=== PATIENT | female | born 1960 | race Caucasian/White ===

== ENCOUNTER 2016-10-29 10:35 | Emergency (ER) | payer OTHER ==
[~2016-10-29] VITALS: Ht 160 cm; Wt 62.1 kg
[~2016-10-29 10:35] MED LIST: ASCO250T4 PO; ATV5 PO; BUPR150T7 PO; CALC500C70 PO; CITA40TA4 PO; DIAZ2TAB PO; DOCU-94 PO; HYDR-3763 PO; HYDR25TA4 PO; LEVO50TA PO; LSNP/30 PO; MULTTAB58 PO; OMEP20TA PO; ONDA4TAB46 PO; PRM625 PO; PROM1SUP19 PR; RXC5 PO; SENN-61 PO; SNT/10 PO; SUCR1TAB29 PO; SUMA100T16 PO; TIZA4CAP PO
[2016-10-29 10:41] VITALS: TEMP 36.7; Ht 160 cm; Wt 62.1 kg
[2016-10-29 11:09] LABS: BASO % 0.3 %; BASO ABS # 0.02 K/uL (0-0.2); COMPLETE YES; EOS % 1.3 %; HEMATOCRIT 37.7 % (37-47); IG% 0.1 %; LYMPH % 33.2 %; LYMPH ABS # 2.29 K/uL (1.2-3.4); MEAN CELL VOLUME 92.4 fL (80-100); MEAN CORPUSCULAR HEMOGLOBIN 29.9 pg (25-34); MEAN CORPUSCULAR HGB CONC 32.4 g/dl (32-36); MEAN PLATELET VOLUME 9.2 fL (7.4-10.4); MONO % 5.8 %; NEUT % 59.3 %; PLATELET COUNT 354 K/uL (130-400); RED BLOOD COUNT 4.08 M/uL (4.2-5.4); WHITE BLOOD COUNT 6.89 K/uL (4.8-10.8)
[2016-10-29] MEDS ORDERED: METOCLOPRAMIDE HCL INJ 5 MG/ML 2 ML VIAL IV STA (11:10)
[2016-10-29] MEDS ORDERED: SODIUM CHLORIDE 0.9% 1000ML 1,000 ML IV STA (11:10)
[2016-10-29] MEDS ORDERED: HYDROmorphone INJ 1 MG/ML SYR IV STA ×3 (11:10→14:31)
--- NOTE | 2016-10-29 11:25 | EMERGENCY ROOM VISIT NOTE ---
History Report prepared by Salvatore: Meg Welch Under the Supervision of: Dr. Ulices Palomino M.D. First contact with patient: 10:44 Chief Complaint: ABDOMINAL PAIN Stated Complaint: NAUSEA Nursing Triage Summary: Patient presents with 2 day history of nausea/vomiting and abdominal pain. History of SBO. Was evaluated at [facility] on Wednesday with negative findigns. Went to GI doc this AM and sent to ED for evaluation. Patient denies any constipation, reports diarrhea this AM. History of Present Illness The patient is a 56 year old female who presents to the Emergency Room with complaints of persistent nausea and vomiting that began two days ago. She currently rates her discomfort as a 9/10 in severity. The patient notes that she has a history of small bowel obstructions and was evaluated at [facility] emergency department on Wednesday. She notes that the CT scan was negative for any findings. 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 She notes abdominal pain and diarrhea as well, but denies any constipation. Source of History: patient Onset: two days ago Position: other (global) Symptom Intensity: 9/10 Quality: other (nausea and vomiting) Timing: other (persistent) Associated Symptoms: + abdominal pain, + nausea, + vomiting Review of Systems See HPI for pertinent positives & negatives. A total of 10 systems reviewed and were otherwise negative. Past Medical & Surgical Medical Problems: (1) Cervical stenosis of spinal canal (2) Cholecystitis Surgical Problems: (1) History of repair of hiatal hernia (2) Status post laparoscopic Krystyna fundoplication Family History No pertinent family history stated. Social History Smoking Status: Never Smoker Alcohol Use: occasionally Drug Use: none Marital Status: Housing Status: lives with family Occupation Status: unemployed Current/Historical Medications Scheduled Ascorbic Acid (Vitamin C), 1 TAB PO QAM Bupropion Hcl (Wellbutrin Sr), 75 MG PO BID Calcium/Vitamin D (Os-Colten 500 Plus D), 1 TAB PO QAM Citalopram (Citalopram Hydrobromide), 1 TAB PO HS Docusate Sodium (Colace), 1 CAP PO BID Estrogens, Conjugated (Premarin), 0.625 MG PO BID Hydrochlorothiazide (Hctz), 1 TAB PO QAM Levothyroxine Sodium (Synthroid), 1 TAB PO QAM Lisinopril (Zestril), 1 TAB PO QAM Multiple Vitamin (Multivitamin), 0.5 TAB PO BID Omeprazole (Omeprazole), 40 MG PO BID Sennosides (Senokot), 8.6 MG PO HS Scheduled PRN Hydrocodon/Acetaminophen 10MG/300MG (Vicodin Hp (10MG/300MG)), 1 TAB PO TID PRN for Pain Lorazepam (Lorazepam), 0.5 MG PO Q8H PRN for anxiety and/or sedation Ondansetron Hcl (Zofran), 4 MG PO Q6 PRN for Nausea Oxycodone HCl (Oxycodone HCl), 5-10 MG PO Q4H PRN for moderate-severe pain Oxycodone/Acetaminophen 5MG/325MG (Percocet 5MG/325MG), 1-2 TAB PO Q4H PRN for Pain Promethazine Hcl (Phenergan Suppository), 25 MG AZ Q6H PRN for Nausea Sumatriptan Succinate (Imitrex), 1 TAB PO UD PRN for Migraine Tizanidine (Zanaflex), 4 MG PO TID PRN for Muscle Spasms Zaleplon (Sonata), 1 CAP PO HS PRN for Sleep Allergies Coded Allergies: Sulfamethoxazole w/Trimethoprim (Verified Allergy, Unknown, LIPS SWELLING , 04/14/16) Methotrexate (Verified Adverse Reaction, Unknown, GI UPSET, 04/14/16) Physical Exam Vital Signs Date Time Temp Pulse Resp B/P Pulse Ox O2 Delivery O2 Flow Rate FiO2 10/29/16 14:08 84 16 132/70 99 10/29/16 12:00 86 16 142/89 99 10/29/16 10:41 36.7 89 20 152/102 98 Room Air Physical Exam GENERAL: Patient is actively dry heaving on exam. HEAD: Normocephalic atraumatic EYES: Ocular movements intact pupils equal and react to light OROPHARYNX mucous membranes are moist no exudates present no erythema or edema present NECK: Supple no nuchal rigidity CHEST: Good equal expansion LUNGS: Clear and equal to auscultation CARDIAC: Normal S1 and S2 ABDOMEN: Soft nontender no guarding BACK: No CVA tenderness EXTREMITIES: No pain upon palpation normal muscle strength in all groups no clubbing cyanosis or edema NEURO: Patient is following commands is answering questions appropriately. Alert and oriented x3 Cranial Nerves 2-12 grossly intact Medical Decision & Procedures ER Provider Diagnostic Interpretation: CT results as stated below per my review and radiologist interpretation: CT SCAN OF THE ABDOMEN AND PELVIS WITH IV CONTRAST CLINICAL HISTORY: Generalized abdominal pain. Nausea. Clinical concern for small bowel obstruction. COMPARISON STUDY: Abdominal CT dated 04/14/2016. TECHNIQUE: Following the IV administration of 93 cc of Optiray 320, CT scan of the abdomen and pelvis is performed from the lung bases to the proximal femora. Images are reviewed in the axial, sagittal, and coronal planes. IV contrast was administered without complication. Automated dose control exposure was utilized. CT DOSE: 265.31 mGy.cm FINDINGS: Lung bases: The heart is normal in size and without pericardial effusion. There is elevation of left hemidiaphragm with mild left basilar atelectasis. No airspace consolidation or pleural effusion is seen. A right breast implant is partially visualized. Liver: The contrast-enhanced liver is normal in size, contour, and attenuation. There is no intrahepatic biliary ductal dilatation. The hepatic veins and portal veins are patent. Gallbladder: Unremarkable. Spleen: Normal in size and attenuation. Pancreas: Atrophic and grossly unremarkable. Adrenal glands: Unremarkable. Kidneys: The contrast enhanced kidneys demonstrate mild cortical atrophy and are without hydronephrosis. The kidneys enhance symmetrically. Abdominal vasculature: The abdominal aorta is normal in course and caliber. Bowel: Postoperative change is seen at the gastroesophageal junction comment the configuration of the junction suggests previous fundoplication. The stomach and duodenum otherwise normal in configuration. There is ill-defined mucosal thickening involving the distal stomach, best seen on axial image #95. This appears circumferential. There is no perigastric inflammatory change. There is no bowel obstruction. The appendix is well-visualized and normal. Peritoneum: There is no intraperitoneal free air or abdominal ascites. Lymphadenopathy: A prominent upper abdominal lymph node adjacent to the duodenum on image #138 measures 1.1 x 1.6 cm. Pelvic viscera: The bladder is normal as visualized. The uterus is surgically absent. No adnexal lesion is seen. Numerous phleboliths are identified in the pelvis the Skeletal structures: The skeletal structures are osteopenic. There is moderate lumbosacral spondylosis and scoliosis. No lytic or blastic lesions are seen. Hemangiomas are suspected at multiple lumbar levels and the sacrum. IMPRESSION: 1. There are no acute infectious or inflammatory findings in the abdomen or pelvis. 2. There is no small bowel obstruction identified as clinically queried. 3. The appearance of the stomach suggests previous fundoplication. Correlation with the surgical history will be required. 4. Ill-defined gastric wall thickening is suggested in the mid to distal stomach. This appears circumferential and is of indeterminant significance. This could attention represent gastritis or less likely a gastric mass lesion. GI follow-up is recommended, with consideration of endoscopy to exclude underlying mass lesion. 5. A prominent upper abdominal lymph node adjacent to the duodenum is of indeterminant etiology and significance. 6. Additional findings as above. Electronically signed by: Sundeep Blackwood M.D. 10/29/2016 2:19 PM Dictated Date/Time: 10/29/2016 2:08 PM Laboratory Results 10/29/16 10:50 Red Blood Count 4.08, Mean Corpuscular Volume 92.4, Mean Corpuscular Hemoglobin 29.9, Mean Corpuscular Hemoglobin Concent 32.4, Mean Platelet Volume 9.2, Neutrophils (%) (Auto) 59.3, Lymphocytes (%) (Auto) 33.2, Monocytes (%) (Auto) 5.8, Eosinophils (%) (Auto) 1.3, Basophils (%) (Auto) 0.3, Neutrophils # (Auto) 4.08, Lymphocytes # (Auto) 2.29, Monocytes # (Auto) 0.40, Eosinophils # (Auto) 0.09, Basophils # (Auto) 0.02 10/29/16 10:50 Test 10/29/16 00:00 10/29/16 10:50 Urine Color YELLOW Urine Appearance CLEAR (CLEAR) Urine pH 7.0 (4.5-7.5) Urine Specific [place] 1.010 (1.000-1.030) Urine Protein NEG (NEG) Urine Glucose (UA) NEG (NEG) Urine Ketones TRACE (NEG) Urine Occult Blood NEG (NEG) Urine Nitrite NEG (NEG) Urine Bilirubin NEG (NEG) Urine Urobilinogen NEG (NEG) Urine Leukocyte Esterase NEG (NEG) Urine Opiates Screen POS (NEG) Urine Methadone, Qualitative NEG (NEG) Urine Barbiturates NEG (NEG) Urine Phencyclidine (PCP) Level NEG (NEG) Ur Amphetamine/Methamphetamine NEG (NEG) MDMA (Ecstasy) Screen POS (NEG) Urine Benzodiazepines Screen NEG (NEG) Urine Cocaine Metabolite NEG (NEG) Urine Marijuana (THC) NEG (NEG) White Blood Count 6.89 K/uL (4.8-10.8) Red Blood Count 4.08 M/uL (4.2-5.4) Hemoglobin 12.2 g/dL (12.0-16.0) Hematocrit 37.7 % (37-47) Mean Corpuscular Volume 92.4 fL (80-100) Mean Corpuscular Hemoglobin 29.9 pg (25-34) Mean Corpuscular Hemoglobin Concent 32.4 g/dl (32-36) Platelet Count 354 K/uL (130-400) Mean Platelet Volume 9.2 fL (7.4-10.4) Neutrophils (%) (Auto) 59.3 % Lymphocytes (%) (Auto) 33.2 % Monocytes (%) (Auto) 5.8 % Eosinophils (%) (Auto) 1.3 % Basophils (%) (Auto) 0.3 % Neutrophils # (Auto) 4.08 K/uL (1.4-6.5) Lymphocytes # (Auto) 2.29 K/uL (1.2-3.4) Monocytes # (Auto) 0.40 K/uL (0.11-0.59) Eosinophils # (Auto) 0.09 K/uL (0-0.5) Basophils # (Auto) 0.02 K/uL (0-0.2) RDW Standard Deviation 50.4 fL (36.4-46.3) RDW Coefficient of Variation 15.0 % (11.5-14.5) Immature Granulocyte % (Auto) 0.1 % Immature Granulocyte # (Auto) 0.01 K/uL (0.00-0.02) Anion Gap 9.0 mmol/L (3-11) Est Creatinine Clear Calc Drug Dose 57.7 ml/min Estimated GFR () 83.4 Estimated GFR (Non- 71.9 BUN/Creatinine Ratio 13.4 (10-20) Calcium Level 9.4 mg/dl (8.5-10.1) Total Bilirubin 0.2 mg/dl (0.2-1) Direct Bilirubin < 0.1 mg/dl (0-0.2) Aspartate Amino Transf (AST/SGOT) 16 U/L (15-37) Alanine Aminotransferase (ALT/SGPT) 19 U/L (12-78) Alkaline Phosphatase 58 U/L (45-117) Total Protein 6.9 gm/dl (6.4-8.2) Albumin 3.6 gm/dl (3.4-5.0) Lipase 97 U/L (73-393) Labs reviewed by ED physician. Medications Administered Medications (Trade) Dose Ordered Sig/Toma Route Start Time Stop Time Status Last Admin Dose Admin Sodium Chloride (Nss 1000ml) 1,000 ml @ 999 mls/hr Q1H1M STAT IV 10/29/16 11:10 10/29/16 12:10 DC 10/29/16 11:21 999 MLS/HR Metoclopramide HCl (Reglan Inj) 10 mg NOW STAT IV 10/29/16 11:10 10/29/16 11:13 DC 10/29/16 11:21 10 MG Hydromorphone HCl (Dilaudid Inj) 1 mg NOW STAT IV 10/29/16 11:10 10/29/16 11:13 DC 10/29/16 11:21 1 MG Ondansetron HCl (Zofran Inj) 4 mg NOW STAT IV 10/29/16 11:51 10/29/16 11:52 DC 10/29/16 11:57 4 MG Hydromorphone HCl (Dilaudid Inj) 1 mg NOW STAT IV 10/29/16 11:51 10/29/16 11:52 DC 10/29/16 11:57 1 MG Miscellaneous Medication (Gi Cocktail) 24 ml NOW STAT PO 10/29/16 14:30 10/29/16 14:32 DC 10/29/16 15:05 24 ML Famotidine (Pepcid Tab) 20 mg NOW STAT PO 10/29/16 14:30 10/29/16 14:32 DC 10/29/16 15:03 20 MG Sucralfate (Carafate Tab) 1 gm NOW STAT PO 10/29/16 14:30 10/29/16 14:32 DC 10/29/16 15:03 1 GM Hydromorphone HCl (Dilaudid Inj) 1 mg NOW STAT IV 10/29/16 14:31 10/29/16 14:32 DC 10/29/16 15:02 1 MG Ondansetron HCl (Zofran Inj) 4 mg NOW STAT IV 10/29/16 14:39 10/29/16 14:40 DC 10/29/16 15:03 4 MG ED Course 1107: Past medical records reviewed. The patient was evaluated in room C4. A complete history and physical examination was performed. 1110: Ordered Dilaudid Inj 1 mg IV, Reglan Inj 10 mg IV, Sodium Chloride 1000 ml @ 999 mls/hr IV. 1115: Past medical records reviewed. The patient was evaluated in room C4. A complete history and physical examination was performed. 1150: I reevaluated the patient and she is feeling a little bit better. 1151: Ordered Dilaudid Inj 1 mg IV, Zofran Inj 4 mg IV. 1427: I reevaluated the patient and she informed me that she had an appointment with gastroenterology today. 1430: Ordered Sucralfate 1 gm PO, Pepcid Tab 20 mg PO, GI Cocktail 24 ml PO. 1431: Ordered Dilaudid Inj 1 mg IV. 1434: I discussed the patient's case with Dr. Art, Gastroenterology. He states that the patient should follow up with their office. 1439: Ordered Zofran Inj 4 mg IV. 1445: I reevaluated the patient and she is resting. I discussed all the exam findings with her and I discussed the treatment plan. She verbalized complete understanding and agreement. She is ready to go home. Medical Decision Differential diagnosis: Etiologies such as appendicitis, diverticulitis, PUD, biliary pathology, UTI, pancreatitis, obstruction, mesenteric ischemia, aortic pathology, infections, inflammatory bowel disease, renal colic, as well as others were entertained. This is a 56-year-old female who presents emergency department complaining of epigastric pain. The patient was supposed to see gastroenterology today but came to the emergency department instead. She is accomplishment medical history in regards to her stomach. She had a Krystyna fundoplication performed in [place]. She was admitted here for similar symptoms back in last April. At that point the patient had been placed on Pepcid twice a day and was taking Carafate. CT the abdomen pelvis is concerning for a large amount of gastritis and abnormal stomach wall. For this reason I did discuss the case with Dr. art who asked that the patient be started on a clear liquid diet along with Carafate and Pepcid. The patient will have close follow-up with gastroenterology. An IV was established, patient given normal saline bolus, 1 mg of Dilaudid 3, Reglan, Zofran. Repeat examination revealed improvement patient's symptoms. The patient was able to tolerate the by mouth contrast and I feel is able to be discharged home for close follow-up with gastroenterology. Patient was in agreement with the treatment plan. Consults Time Called: 1430 Consulting Physician: Dr. Art, Gastrotenterology Returned Call: 1434 I discussed the patient's case with Dr. Art, Gastroenterology. He states that the patient should follow up with their office. Impression Primary Impression: Gastritis Scribe Attestation The scribe's documentation has been prepared under my direction and personally reviewed by me in its entirety. I confirm that the note above accurately reflects all work, treatment, procedures, and medical decision making performed by me. Departure Information Dispostion Home / Self-Care Prescriptions Docusate Sodium (COLACE) 100 Mg Cap 1 CAP PO BID for 10 Days, #20 CAP Prov: Ulices Palomino MD 10/29/16 Sennosides (SENOKOT) 8.6 Mg Tab 8.6 MG PO HS, #10 TAB Prov: Ulices Palomino MD 10/29/16 Oxycodone/Acetaminophen 5MG/325MG (PERCOCET 5MG/325MG) Tab 1-2 TAB PO Q4H Y for Pain, #14 TAB Prov: Ulices Palomino MD 10/29/16 Promethazine Hcl (PHENERGAN SUPPOSITORY) 25 Mg Supp 25 MG AZ Q6H Y for Nausea, #10 SUPP Prov: Ulices Palomino MD 10/29/16 Referrals Meagan Casillas MD (PCP) Forms Call Back Authorization, HOME CARE DOCUMENTATION FORM, IMPORTANT VISIT INFORMATION, School Instructions, Work Instructions Patient Instructions ED Diet Clear Liquid, ED Gastritis, Gastritis Tx, My [facility] Additional Instructions Clear liquid diet next 48 hours Take 5 ml Maalox before every meal and at betime Need follow up with Dr Art's office You received narcotic or benzodiazepene medication while in the emergency room today. Do not drive, operate heavy machinery, or drink alcohol under the influence of this medication. Take Percocet for breakthrough pain You have been examined and treated today on an emergency basis only. This is not a substitute for, or an effort to provide, complete comprehensive medical care. It is impossible to recognize and treat all injuries or illnesses in a single emergency department visit. It is therefore important that you follow up closely with Dr Casillas. Call as soon as possible for an appointment. Thank you for your time and consideration. I look forward to speaking with you again soon. Please don't hesitate to call us if you have any questions. Problem Qualifiers Primary Impression: Gastritis Gastritis type: other gastritis Chronicity: acute Gastritis bleeding: without bleeding Qualified Codes: K29.00 - Acute gastritis without bleeding
[2016-10-29 11:29] LABS: ALT/SGPT 19 U/L (12-78); AST/SGOT 16 U/L (15-37); BLOOD UREA NITROGEN 12 mg/dl (7-18); BUN/CREATININE RATIO 13.4 (10-20); CALCIUM 9.4 mg/dl (8.5-10.1); CARBON DIOXIDE 27 mmol/L (21-32); CHLORIDE 105 mmol/L (98-107); CREATININE 0.89 mg/dl (0.60-1.20); GLUCOSE 101 mg/dl (70-99); POTASSIUM 3.8 mmol/L (3.5-5.1); SODIUM 141 mmol/L (136-145)
[2016-10-29 11:31] LABS: ALKALINE PHOSPHATASE 58 U/L (45-117)
[2016-10-29] MEDS ORDERED: ONDANSETRON INJ 2 MG/ML 2 ML VIAL IV STA ×2 (11:51→14:39)
[2016-10-29 12:07] LABS: URINE APPEARANCE CLEAR (CLEAR); URINE BILIRUBIN NEG (NEG); URINE COLOR YELLOW; URINE NITRITE NEG (NEG); UROBILINOGEN NEG (NEG)
[2016-10-29 12:11] LABS: MANUAL MICROSCOPIC REQUIRED? NO; REVIEW REQ? NO
[2016-10-29] MEDS ORDERED: OPTIRAY 320 IV PRN (12:30)
[2016-10-29 12:38] LABS: BENZODIAZEPINE, URINE NEG (NEG); COCAINE,URINE NEG (NEG); PHENCYCLIDINE, URINE NEG (NEG)
[2016-10-29 14:08] VITALS: BP 132/70; PULSE 84; O2SAT 99
--- NOTE | 2016-10-29 14:21 | DIAGNOSTIC IMAGING REPORT ---
CT SCAN OF THE ABDOMEN AND PELVIS WITH IV CONTRAST CLINICAL HISTORY: Generalized abdominal pain. Nausea. Clinical concern for small bowel obstruction. COMPARISON STUDY: Abdominal CT dated 04/14/2016. TECHNIQUE: Following the IV administration of 93 cc of Optiray 320, CT scan of the abdomen and pelvis is performed from the lung bases to the proximal femora. Images are reviewed in the axial, sagittal, and coronal planes. IV contrast was administered without complication. Automated dose control exposure was utilized. CT DOSE: 265.31 mGy.cm FINDINGS: Lung bases: The heart is normal in size and without pericardial effusion. There is elevation of left hemidiaphragm with mild left basilar atelectasis. No airspace consolidation or pleural effusion is seen. A right breast implant is partially visualized. Liver: The contrast-enhanced liver is normal in size, contour, and attenuation. There is no intrahepatic biliary ductal dilatation. The hepatic veins and portal veins are patent. Gallbladder: Unremarkable. Spleen: Normal in size and attenuation. Pancreas: Atrophic and grossly unremarkable. Adrenal glands: Unremarkable. Kidneys: The contrast enhanced kidneys demonstrate mild cortical atrophy and are without hydronephrosis. The kidneys enhance symmetrically. Abdominal vasculature: The abdominal aorta is normal in course and caliber. Bowel: Postoperative change is seen at the gastroesophageal junction comment the configuration of the junction suggests previous fundoplication. The stomach and duodenum otherwise normal in configuration. There is ill-defined mucosal thickening involving the distal stomach, best seen on axial image #95. This appears circumferential. There is no perigastric inflammatory change. There is no bowel obstruction. The appendix is well-visualized and normal. Peritoneum: There is no intraperitoneal free air or abdominal ascites. Lymphadenopathy: A prominent upper abdominal lymph node adjacent to the duodenum on image #138 measures 1.1 x 1.6 cm. Pelvic viscera: The bladder is normal as visualized. The uterus is surgically absent. No adnexal lesion is seen. Numerous phleboliths are identified in the pelvis the Skeletal structures: The skeletal structures are osteopenic. There is moderate lumbosacral spondylosis and scoliosis. No lytic or blastic lesions are seen. Hemangiomas are suspected at multiple lumbar levels and the sacrum. IMPRESSION: 1. There are no acute infectious or inflammatory findings in the abdomen or pelvis. 2. There is no small bowel obstruction identified as clinically queried. 3. The appearance of the stomach suggests previous fundoplication. Correlation with the surgical history will be required. 4. Ill-defined gastric wall thickening is suggested in the mid to distal stomach. This appears circumferential and is of indeterminant significance. This could attention represent gastritis or less likely a gastric mass lesion. GI follow-up is recommended, with consideration of endoscopy to exclude underlying mass lesion. 5. A prominent upper abdominal lymph node adjacent to the duodenum is of indeterminant etiology and significance. 6. Additional findings as above. Electronically signed by: Sundeep Blackwood M.D. 10/29/2016 2:19 PM Dictated Date/Time: 10/29/2016 2:08 PM
[2016-10-29] MEDS ORDERED: GI COCKTAIL PO STA (14:30)
[2016-10-29] MEDS ORDERED: FAMOTIDINE 20 MG TAB PO STA (14:30)
[2016-10-29] MEDS ORDERED: SUCRALFATE 1 GM TAB PO STA (14:30)
[2016-10-29] MEDS ORDERED: PROM25SU28 PR (14:46)
[2016-10-29] MEDS ORDERED: DOCU-94 PO (14:46)
[2016-10-29] MEDS ORDERED: SENN1TAB77 PO (14:46)
[2016-10-29] MEDS ORDERED: OXYC-57 PO (14:46)
[2016-10-29] MEDS ORDERED: ALUMINUM/MAGNESIUM SUSP 30 ML UDC ONE (14:58)
[2016-10-29] MEDS ORDERED: LIDOCAINE HCL 2% VISC SOLN 20 ML UDC ONE (14:58)
[2016-11-02 18:38] LABS: COD UR NEGATIVE NG/ML (CUTOFF=50); HYDROCOD UR 85 NG/ML (CUTOFF=50); HYDROMOR UR 253 NG/ML (CUTOFF=50); MORPHINE UR NEGATIVE NG/ML (CUTOFF=50); NORHYDROCODONE CONF UR 281 NG/ML (CUTOFF=50); OXYMORPH UR NEGATIVE NG/ML (CUTOFF=50)
[2017-01-20] MEDS ORDERED: CLB/200 PO (09:51)
[2017-01-20] MEDS ORDERED: SERT50TA PO (09:51)
[2017-01-20] MEDS ORDERED: PRLSR20 PO (09:51)
== END 2016-10-29 15:53 | disposition home or self-care (01) ==
LOC: EDBD 10:35 → C.ED 10:36 → C.EDC 15:53
DX: K29.00 Acute gastritis without bleeding (principal); Z98.890 Other specified postprocedural states; Z88.2 Allergy status to sulfonamides

== ENCOUNTER → 2016-11-04 | Day surgery (SDC) | payer OTHER ==
[~2016-11-04] VITALS: Ht 160 cm; Wt 59.0 kg
[~2016-11-04] MED LIST changes: +CLB/200 PO; -DIAZ2TAB PO; +LIDOCAINE HCL 2% 2 ML VIAL (20MG/ML) ONE; +ONDANSETRON INJ 2 MG/ML 2 ML VIAL ONE; +OXYC-57 PO; +PRLSR20 PO; -PROM1SUP19 PR; +PROM25SU28 PR; +PROPOFOL IV EMULSION 10 MG/ML 20 ML VIAL IV ONE; -SENN-61 PO; +SENN1TAB77 PO; +SERT50TA PO; +SODIUM CHLORIDE 0.9% 500ML 500 ML IV ONE; -SUCR1TAB29 PO
[2016-11-04 08:10] VITALS: Ht 160 cm; Wt 59.0 kg
--- NOTE | 2016-11-04 08:46 | Endo History and Physical ---
History & Physical Date of Service: Nov 04, 2016. Chief Complaint: abd pain Referring Physician: Dr. Meagan Casillas History of Present Illness 56 yo CF who presents for EGD secondary to abdominal pain. Past Medical History Osteoporosis, Arthritis, Anxiety, Reflux, Blood Dyscrasias, Hypertension, Thyroid Disease, Other, Depression Past Surgical History Hx Cardiac Surgery: No Hx Internal Defibrillator: No Hx Pacemaker: No Hx Abdominal Surgery: Yes (see above) Hx of Implantable Prosthesis: No Hx Post-Op Nausea and Vomiting: Yes Hx Cancer Surgery: No Hx Thoracic Surgery: No Hx Orthopedic: Yes (right ankle, spine/neck sx) Hx Urinary Tract Surgery: No Social History Smoking Status: Never Smoker Hx Substance Use: Yes Hx Alcohol Use: Yes (social) Allergies Coded Allergies: Sulfamethoxazole w/Trimethoprim (Verified Allergy, Unknown, LIPS SWELLING , 04/14/16) Methotrexate (Verified Adverse Reaction, Unknown, GI UPSET, 04/14/16) Current Medications Reported Home Medications Medications Dose Route/Sig Max Daily Dose Days Date Category Colace (Docusate Sodium) 100 Mg Cap 1 Cap PO BID 10 10/29/16 Rx Percocet 5MG/325MG (Oxycodone/Acetaminophen) Tab 1-2 Tab PO Q4H PRN 10/29/16 Rx Phenergan Suppository (Promethazine HCl) 25 Mg Supp 25 Mg OR Q6H PRN 10/29/16 Rx Omeprazole 20 Mg Tab 40 Mg PO BID 04/16/16 Rx Lorazepam 0.5 Mg Tab 0.5 Mg PO Q8H PRN 15 02/20/16 Rx Oxycodone HCl 5 Mg Tab 5-10 Mg PO Q4H PRN 30 02/20/16 Rx Zofran (Ondansetron HCl) 4 Mg Tab 4 Mg PO Q6 PRN 02/03/16 Reported Vitamin C (Ascorbic Acid) 250 Mg Tab 1 Tab PO QAM 05/14/15 Reported Multivitamin (Multiple Vitamin) 1 Tab Tab 0.5 Tab PO BID 05/14/15 Reported Os-Colten 500 Plus D (Calcium/Vitamin D) Tab 1 Tab PO QAM 05/14/15 Reported Zestril (Lisinopril) 30 Mg Tab 1 Tab PO QAM 05/14/15 Reported Premarin (Estrogens Conjugated) 0.625 Mg Tab 0.625 Mg PO BID 05/14/15 Reported Wellbutrin Sr (Bupropion Hcl) 150 Mg Tab 75 Mg PO BID 05/14/15 Reported Citalopram Hydrobromide (Citalopram) 40 Mg Tab 1 Tab PO HS 05/14/15 Reported Synthroid (Levothyroxine Sodium) 50 Mcg Tab 1 Tab PO QAM 05/14/15 Reported Hctz (Hydrochlorothiazide) 25 Mg Tab 1 Tab PO QAM 05/14/15 Reported Vicodin Hp (10MG/300MG) (Hydrocodon/Acetaminophen 10MG/300MG) 1 Tab Tab 1 Tab PO TID PRN 05/14/15 Reported Sonata (Zaleplon) 10 Mg Cap 1 Cap PO HS PRN 05/14/15 Reported Zanaflex (Tizanidine HCl) 4 Mg Cap 4 Mg PO TID PRN 05/14/15 Reported Imitrex (Sumatriptan Succinate) 100 Mg Tab 1 Tab PO UD PRN 30 05/14/15 Reported Vital Signs Weight (Kilograms): 59 Height (Feet): 5 Height (Inches): 3 Date Time Temp Pulse Resp B/P Pulse Ox O2 Delivery O2 Flow Rate FiO2 11/04/16 08:28 36.1 99 18 178/92 97 Room Air Physical Exam General Appearance: WD/WN, no apparent distress Respiratory/Chest: Auscultation: breath sounds normal Cardiovascular: Heart Auscultation: RRR Abdomen: Bowel Sounds: normal Inspection & Palpation: soft, non-distended, no tenderness, guarding & rebound Assessment and Plan Assessment: 56 yo CF who presents for EGD secondary to abdominal pain. Plan: Proceed with EGD.
--- NOTE | 2016-11-04 08:57 | Discharge Instructions ---
Endoscopy Patient Instructions Date / Procedure(s) Performed Nov 04, 2016. EGD Allergy Information Coded Allergies: Sulfamethoxazole w/Trimethoprim (Verified Allergy, Unknown, LIPS SWELLING , 04/14/16) Methotrexate (Verified Adverse Reaction, Unknown, GI UPSET, 04/14/16) Discharge Date / Findings Nov 04, 2016. Gastric ulcer s/p biopsies Medication Instructions OK to resume all medications today as prescribed. Start Carafate 1g by mouth four times daily prior to meals and at bedtime. Reported Home Medications Medications Dose Route/Sig Max Daily Dose Days Date Category Colace (Docusate Sodium) 100 Mg Cap 1 Cap PO BID 10 10/29/16 Rx Percocet 5MG/325MG (Oxycodone/Acetaminophen) Tab 1-2 Tab PO Q4H PRN 10/29/16 Rx Phenergan Suppository (Promethazine HCl) 25 Mg Supp 25 Mg ID Q6H PRN 10/29/16 Rx Omeprazole 20 Mg Tab 40 Mg PO BID 04/16/16 Rx Lorazepam 0.5 Mg Tab 0.5 Mg PO Q8H PRN 15 02/20/16 Rx Oxycodone HCl 5 Mg Tab 5-10 Mg PO Q4H PRN 30 02/20/16 Rx Zofran (Ondansetron HCl) 4 Mg Tab 4 Mg PO Q6 PRN 02/03/16 Reported Vitamin C (Ascorbic Acid) 250 Mg Tab 1 Tab PO QAM 05/14/15 Reported Multivitamin (Multiple Vitamin) 1 Tab Tab 0.5 Tab PO BID 05/14/15 Reported Os-Colten 500 Plus D (Calcium/Vitamin D) Tab 1 Tab PO QAM 05/14/15 Reported Zestril (Lisinopril) 30 Mg Tab 1 Tab PO QAM 05/14/15 Reported Premarin (Estrogens Conjugated) 0.625 Mg Tab 0.625 Mg PO BID 05/14/15 Reported Wellbutrin Sr (Bupropion Hcl) 150 Mg Tab 75 Mg PO BID 05/14/15 Reported Citalopram Hydrobromide (Citalopram) 40 Mg Tab 1 Tab PO HS 05/14/15 Reported Synthroid (Levothyroxine Sodium) 50 Mcg Tab 1 Tab PO QAM 05/14/15 Reported Hctz (Hydrochlorothiazide) 25 Mg Tab 1 Tab PO QAM 8/11/15 Reported Vicodin Hp (10MG/300MG) (Hydrocodon/Acetaminophen 10MG/300MG) 1 Tab Tab 1 Tab PO TID PRN 05/14/15 Reported Sonata (Zaleplon) 10 Mg Cap 1 Cap PO HS PRN 05/14/15 Reported Zanaflex (Tizanidine HCl) 4 Mg Cap 4 Mg PO TID PRN 05/14/15 Reported Imitrex (Sumatriptan Succinate) 100 Mg Tab 1 Tab PO UD PRN 30 05/14/15 Reported Provider Instructions Activity Restrictions - No exercising or heavy lifting for 24 hours. - Do not drink alcohol the day of the procedure. - Do not drive a car or operate machinery until the day after the procedure. - Do not make any important decisions or sign important papers in 24 hours after the procedure. Following Day: - Return to full activity which may include returning to work/school. Diet Start your diet with liquids and light foods (jello, soup, juice, toast). Then eat your usual diet if not nauseated. Treatment For Common After Affects For mild abdominal pain, bloating, or excessive gas: - Rest - Eat lightly - Lie on right side Follow-Up Information Follow-up with Dr. Meagan Casillas as scheduled Anesthesia Information What You Should Know You have had a procedure that required some medicine to reduce anxiety and discomfort. This treatment is called moderate sedation. After receiving the treatment, you may be sleepy, but you will be able to breathe on your own. The effects of the treatment may last for several hours. Follow these instructions along with Activity/Diet recommendations noted above: * Do NOT do anything where dizziness or clumsiness would be dangerous. * Rest quietly at home today, then you can be up and about tomorrow. * Have a responsible person stay with you the rest of today. * You may have had an I.V. today. If so, you may take the dressing off later today. Recommendations Call your doctor if: * Trouble breathing * Continuous vomiting for more than 24 hours * Temperature above 101 degrees * Severe abdominal pain or bloating * Pain not relieved by pain medicine ordered * There is increased drainage or redness from any incision * A large amount of rectal bleeding greater than 2-3 tablespoons. (If you had a polyp/s removed or have hemorrhoids, a small amount of blood - from the rectum is to be expected.) * You have any unanswered questions or concerns. IN THE EVENT OF A SERIOUS EMERGENCY, GO TO THE NEAREST EMERGENCY ROOM Your discharge instructions were prepared by provider Anastacio Edgar. Patient Instructions Signature Page Mary Ann Dawkins Patient (or Guardian) Signature/Date: I have read and understand the instructions given to me by my caregivers. Caregiver/RN/Doctor Signature/Date: The above-named patient and/or guardian has received patient instructions on this date. + Original Patient Signature Page (only) stays with chart. Please make copy for patient.
--- NOTE | 2016-11-04 09:16 | Anesthesiology Progress Note ---
Anesthesia Post Op Note Date & Time Nov 04, 2016 at 09:15 Vital Signs Pain Intensity: 4 Vital Signs Past 12 Hours Date Time Temp Pulse Resp B/P Pulse Ox O2 Delivery O2 Flow Rate FiO2 11/04/16 09:02 95 20 140/84 100 Room Air 11/04/16 08:28 36.1 99 18 178/92 97 Room Air Notes Mental Status: alert / awake / arousable, participated in evaluation Pt Amnestic to Procedure: Yes Nausea / Vomiting: adequately controlled Pain: adequately controlled, see Notes Airway Patency, RR, SpO2: stable & adequate BP & HR: stable & adequate Hydration State: stable & adequate Anesthetic Complications: no major complications apparent The patient did well. She is complaining of abdominal pain that has bothered her for the past week.
[2016-11-04 09:32] VITALS: BP 168/90; PULSE 86; O2SAT 100
--- NOTE | 2016-11-04 10:16 | GI REPORT ---
Procedure Date: 11/04/2016 8:16 AM Procedure: Upper GI endoscopy Indications: Epigastric abdominal pain Medicines: Monitored Anesthesia Care Complications: No immediate complications. Estimated Blood Loss: Estimated blood loss: none. Procedure: Pre-Anesthesia Assessment: - Prior to the procedure, a History and Physical was performed, and patient medications and allergies were reviewed. The patient's tolerance of previous anesthesia was also reviewed. The risks and benefits of the procedure and the sedation options and risks were discussed with the patient. All questions were answered, and informed consent was obtained. Prior Anticoagulants: The patient has taken no previous anticoagulant or antiplatelet agents. ASA Grade Assessment: III - A patient with severe systemic disease. After reviewing the risks and benefits, the patient was deemed in satisfactory condition to undergo the procedure. After obtaining informed consent, the endoscope was passed under direct vision. Throughout the procedure, the patient's blood pressure, pulse, and oxygen saturations were monitored continuously. The scope was introduced through the mouth, and advanced to the second part of duodenum. The upper GI endoscopy was accomplished without difficulty. The patient tolerated the procedure well. Findings: The esophagus was normal. Evidence of a Krystyna fundoplication was found in the cardia. The wrap appeared intact. This was traversed. Two non-bleeding cratered gastric ulcers with no stigmata of bleeding were found in the gastric antrum. The largest lesion was 10 mm in largest dimension. Biopsies were taken with a cold forceps for histology. The examined duodenum was normal. Impression: - Normal esophagus. - A Krystyna fundoplication was found. The wrap appears intact. - Non-bleeding gastric ulcers with no stigmata of bleeding. Biopsied. - Normal examined duodenum. Recommendation: - Resume previous diet. - Continue present medications. - Await pathology results. - Return to GI office. - Use sucralfate tablets 1 gram PO QID for 1 month. Anastacio Edgar DO 11/04/2016 9:02:10 AM This report has been signed electronically. Note Initiated On: 11/04/2016 8:16 AM
== END | disposition home or self-care (01) ==
LOC: C.GI 07:30
PROVIDERS: ATTEND Internal Medicine
DX: K25.9 Gastric ulcer, unspecified as acute or chronic, without hemorrhage or perforation (principal); K21.9 Gastro-esophageal reflux disease without esophagitis; M19.90 Unspecified osteoarthritis, unspecified site; M81.0 Age-related osteoporosis without current pathological fracture; F41.9 Anxiety disorder, unspecified; F32.9 Major depressive disorder, single episode, unspecified; E07.9 Disorder of thyroid, unspecified; Z88.2 Allergy status to sulfonamides; Z88.8 Allergy status to other drugs, medicaments and biological substances; Z98.890 Other specified postprocedural states

== ENCOUNTER → 2017-02-18 | Day surgery (SDC) | payer OTHER ==
[2017-01-20 09:51] VITALS: BMI 23.0
[2017-02-16 10:03] VITALS: Ht 160 cm; Wt 59.1 kg
[~2017-02-18] VITALS: Ht 160 cm; Wt 59.1 kg
[~2017-02-18] MED LIST changes: -CITA40TA4 PO; -DOCU-94 PO; +LABETALOL HCL IV 5 MG/ML 20ML IV ONE; +MIDAZOLAM HCL 1 MG/ML 2ML VIAL ONE; -OMEP20TA PO; -OXYC-57 PO; -RXC5 PO; -SENN1TAB77 PO
[2017-02-18 08:29] VITALS: TEMP 36.7
--- NOTE | 2017-02-18 08:48 | Endo History and Physical ---
History & Physical Date of Service: February 18, 2017. Chief Complaint: Ab pain, Hx gastric ulcer; diarrhea, hx colon obstruction Referring Physician: Meagan Casillas History of Present Illness 56 yo CF who presents for EGD and colonoscopy secondary to history of gastric ulcer, abdominal pain, diarrhea and history of colon obstruction. Past Medical History Osteoporosis, Arthritis, Anxiety, Reflux, Blood Dyscrasias, Hypertension, Thyroid Disease, Other, Depression Past Surgical History Hx Cardiac Surgery: No Hx Internal Defibrillator: No Hx Pacemaker: No Hx Abdominal Surgery: Yes (GAYATRI FUNDOPLICATION, JOVANA BSO, ABDOMINAL ADHESIONS REMOVAL) Hx of Implantable Prosthesis: No Hx Post-Op Nausea and Vomiting: Yes Hx Cancer Surgery: No Hx Thoracic Surgery: No Hx Orthopedic: Yes (ORIF RT ANKLE, CERVICAL FUSION) Hx Urinary Tract Surgery: No Family History IBD Social History Smoking Status: Never Smoker Hx Substance Use: Yes (SEE MED REC) Hx Alcohol Use: No Allergies Coded Allergies: Sulfamethoxazole w/Trimethoprim (Verified Allergy, Unknown, LIPS SWELLING , 02/16/17) Methotrexate (Verified Adverse Reaction, Unknown, GI UPSET, 02/16/17) Current Medications Reported Home Medications Medications Dose Route/Sig Max Daily Dose Days Date Category CeleBREX (Celecoxib) 200 Mg Cap 200 Mg PO BID PRN 01/20/17 Reported Prilosec (Omeprazole) 20 Mg Capcr 20 Mg PO BID 01/20/17 Reported Zoloft (Sertraline HCl) 50 Mg Tab 50 Mg PO HS 01/20/17 Reported Phenergan Suppository (Promethazine HCl) 25 Mg Supp 25 Mg IN Q6H PRN 10/29/16 Rx Lorazepam 0.5 Mg Tab 0.5 Mg PO Q8H PRN 15 02/20/16 Rx Zofran (Ondansetron HCl) 4 Mg Tab 4 Mg PO Q6 PRN 02/03/16 Reported Vitamin C (Ascorbic Acid) 250 Mg Tab 1 Tab PO QAM 05/14/15 Reported Multivitamin (Multiple Vitamin) 1 Tab Tab 0.5 Tab PO BID 05/14/15 Reported Os-Colten 500 Plus D (Calcium/Vitamin D) Tab 1 Tab PO QAM 05/14/15 Reported Zestril (Lisinopril) 30 Mg Tab 1 Tab PO QAM 05/14/15 Reported Premarin (Estrogens Conjugated) 0.625 Mg Tab 0.625 Mg PO BID 05/14/15 Reported Wellbutrin Sr (Bupropion Hcl) 150 Mg Tab 75 Mg PO BID 05/14/15 Reported Synthroid (Levothyroxine Sodium) 50 Mcg Tab 1 Tab PO QAM 05/14/15 Reported Hctz (Hydrochlorothiazide) 25 Mg Tab 1 Tab PO QAM 05/14/15 Reported Vicodin Hp (10MG/300MG) (Hydrocodon/Acetaminophen 10MG/300MG) 1 Tab Tab 1 Tab PO TID PRN 05/14/15 Reported Sonata (Zaleplon) 10 Mg Cap 1 Cap PO HS PRN 05/14/15 Reported Zanaflex (Tizanidine HCl) 4 Mg Cap 4 Mg PO TID PRN 05/14/15 Reported Imitrex (Sumatriptan Succinate) 100 Mg Tab 1 Tab PO UD PRN 30 05/14/15 Reported Vital Signs Weight (Kilograms): 59.09 Height (Feet): 5 Height (Inches): 3 Date Time Temp Pulse Resp B/P Pulse Ox O2 Delivery O2 Flow Rate FiO2 02/18/17 08:29 36.7 89 20 136/103 99 Room Air Physical Exam General Appearance: WD/WN, no apparent distress Respiratory/Chest: Auscultation: breath sounds normal Cardiovascular: Heart Auscultation: RRR Abdomen: Bowel Sounds: normal Inspection & Palpation: soft, non-distended, no tenderness, guarding & rebound Assessment and Plan Assessment: 56 yo CF who presents for EGD and colonoscopy secondary to history of gastric ulcer, abdominal pain, diarrhea and history of colon obstruction. Plan: Proceed with EGD and colonoscopy.
--- NOTE | 2017-02-18 09:26 | GI REPORT ---
Procedure Date: 02/18/2017 8:54 AM Procedure: Upper GI endoscopy Indications: Follow-up of acute gastric ulcer Medicines: Monitored Anesthesia Care Complications: No immediate complications. Estimated Blood Loss: Estimated blood loss: none. Procedure: Pre-Anesthesia Assessment: - Prior to the procedure, a History and Physical was performed, and patient medications and allergies were reviewed. The patient's tolerance of previous anesthesia was also reviewed. The risks and benefits of the procedure and the sedation options and risks were discussed with the patient. All questions were answered, and informed consent was obtained. Prior Anticoagulants: The patient has taken no previous anticoagulant or antiplatelet agents. ASA Grade Assessment: III - A patient with severe systemic disease. After reviewing the risks and benefits, the patient was deemed in satisfactory condition to undergo the procedure. After obtaining informed consent, the endoscope was passed under direct vision. Throughout the procedure, the patient's blood pressure, pulse, and oxygen saturations were monitored continuously. The scope was introduced through the mouth, and advanced to the second part of duodenum. The upper GI endoscopy was accomplished without difficulty. The patient tolerated the procedure well. Findings: The esophagus was normal. Evidence of a Krystyna fundoplication was found in the cardia (on retroflexion). The wrap appeared intact. One non-bleeding cratered gastric ulcer with no stigmata of bleeding was found in the gastric antrum. The lesion was 8 mm in largest dimension. Biopsies were taken with a cold forceps for histology. The examined duodenum was normal. Impression: - Normal esophagus. - A Krystyna fundoplication was found. The wrap appears intact. - Non-bleeding gastric ulcer with no stigmata of bleeding. Biopsied. - Normal examined duodenum. Recommendation: - Resume previous diet. - Use Protonix (pantoprazole) 40 mg PO BID. - Use sucralfate suspension 1 gram PO QID for 10 days. - Await pathology results. - Return to primary care physician as previously scheduled. Anastacio Edgar, DO 02/18/2017 9:25:17 AM This report has been signed electronically. Note Initiated On: 02/18/2017 8:54 AM I attest to the content of the Intraoperative Record and orders documented therein, exceptions below
--- NOTE | 2017-02-18 09:27 | GI REPORT ---
Procedure Date: 02/18/2017 8:59 AM Procedure: Colonoscopy Indications: Chronic diarrhea Medicines: Monitored Anesthesia Care Complications: No immediate complications. Estimated Blood Loss: Estimated blood loss: none. Procedure: Pre-Anesthesia Assessment: - Prior to the procedure, a History and Physical was performed, and patient medications and allergies were reviewed. The patient's tolerance of previous anesthesia was also reviewed. The risks and benefits of the procedure and the sedation options and risks were discussed with the patient. All questions were answered, and informed consent was obtained. Prior Anticoagulants: The patient has taken no previous anticoagulant or antiplatelet agents. ASA Grade Assessment: II - A patient with mild systemic disease. After reviewing the risks and benefits, the patient was deemed in satisfactory condition to undergo the procedure. After I obtained informed consent, the scope was passed under direct vision. Throughout the procedure, the patient's blood pressure, pulse, and oxygen saturations were monitored continuously. The Scope was introduced through the anus and advanced to the terminal ileum. The colonoscopy was performed without difficulty. The patient tolerated the procedure well. The quality of the bowel preparation was good. The terminal ileum, ileocecal valve, appendiceal orifice, and rectum were photographed. Findings: Non-bleeding internal hemorrhoids were found during retroflexion. The hemorrhoids were small. The exam was otherwise without abnormality. Impression: - Non-bleeding internal hemorrhoids. - The examination was otherwise normal. - No specimens collected. Recommendation: - Resume previous diet. - Continue present medications. - Repeat colonoscopy in 10 years for surveillance. - Return to primary care physician as previously scheduled. Anastacio Edgar DO 02/18/2017 9:27:13 AM This report has been signed electronically. Note Initiated On: 02/18/2017 8:59 AM I attest to the content of the Intraoperative Record and orders documented therein, exceptions below
--- NOTE | 2017-02-18 09:52 | Discharge Instructions ---
Endoscopy Patient Instructions Date / Procedure(s) Performed February 18, 2017. Colonoscopy, EGD Allergy Information Coded Allergies: Sulfamethoxazole w/Trimethoprim (Verified Allergy, Unknown, LIPS SWELLING , 02/16/17) Methotrexate (Verified Adverse Reaction, Unknown, GI UPSET, 02/16/17) Discharge Date / Findings February 18, 2017. EGD: Gastric ulcer s/p biopsies, History of Krystyna Fundoplication Colonoscopy: Internal hemorrhoids Medication Instructions 1) Stop Omeprazole 2) Start Pantoprazole 40mg by mouth twice daily, 1/2 hour prior to breakfast and dinner. 3) OK to resume all other medications today as prescribed. Reported Home Medications Medications Dose Route/Sig Max Daily Dose Days Date Category CeleBREX (Celecoxib) 200 Mg Cap 200 Mg PO BID PRN 01/20/17 Reported Prilosec (Omeprazole) 20 Mg Capcr 20 Mg PO BID 01/20/17 Reported Zoloft (Sertraline HCl) 50 Mg Tab 50 Mg PO HS 01/20/17 Reported Phenergan Suppository (Promethazine HCl) 25 Mg Supp 25 Mg [place] Q6H PRN 10/29/16 Rx Lorazepam 0.5 Mg Tab 0.5 Mg PO Q8H PRN 15 02/20/16 Rx Zofran (Ondansetron HCl) 4 Mg Tab 4 Mg PO Q6 PRN 02/03/16 Reported Vitamin C (Ascorbic Acid) 250 Mg Tab 1 Tab PO QAM 05/14/15 Reported Multivitamin (Multiple Vitamin) 1 Tab Tab 0.5 Tab PO BID 05/14/15 Reported Os-Colten 500 Plus D (Calcium/Vitamin D) Tab 1 Tab PO QAM 05/14/15 Reported Zestril (Lisinopril) 30 Mg Tab 1 Tab PO QAM 05/14/15 Reported Premarin (Estrogens Conjugated) 0.625 Mg Tab 0.625 Mg PO BID 05/14/15 Reported Wellbutrin Sr (Bupropion Hcl) 150 Mg Tab 75 Mg PO BID 05/14/15 Reported Synthroid (Levothyroxine Sodium) 50 Mcg Tab 1 Tab PO QAM 05/14/15 Reported Hctz (Hydrochlorothiazide) 25 Mg Tab 1 Tab PO QAM 05/14/15 Reported Vicodin Hp (10MG/300MG) (Hydrocodon/Acetaminophen 10MG/300MG) 1 Tab Tab 1 Tab PO TID PRN 05/14/15 Reported Sonata (Zaleplon) 10 Mg Cap 1 Cap PO HS PRN 05/14/15 Reported Zanaflex (Tizanidine HCl) 4 Mg Cap 4 Mg PO TID PRN 05/14/15 Reported Imitrex (Sumatriptan Succinate) 100 Mg Tab 1 Tab PO UD PRN 30 05/14/15 Reported Provider Instructions Activity Restrictions - No exercising or heavy lifting for 24 hours. - Do not drink alcohol the day of the procedure. - Do not drive a car or operate machinery until the day after the procedure. - Do not make any important decisions or sign important papers in 24 hours after the procedure. Following Day: - Return to full activity which may include returning to work/school. Diet Start your diet with liquids and light foods (jello, soup, juice, toast). Then eat your usual diet if not nauseated. Treatment For Common After Affects For mild abdominal pain, bloating, or excessive gas: - Rest - Eat lightly - Lie on right side Follow-Up Information Follow-up with Meagan Casillas as scheduled Anesthesia Information What You Should Know You have had a procedure that required some medicine to reduce anxiety and discomfort. This treatment is called moderate sedation. After receiving the treatment, you may be sleepy, but you will be able to breathe on your own. The effects of the treatment may last for several hours. Follow these instructions along with Activity/Diet recommendations noted above: * Do NOT do anything where dizziness or clumsiness would be dangerous. * Rest quietly at home today, then you can be up and about tomorrow. * Have a responsible person stay with you the rest of today. * You may have had an I.V. today. If so, you may take the dressing off later today. Recommendations Call your doctor if: * Trouble breathing * Continuous vomiting for more than 24 hours * Temperature above 101 degrees * Severe abdominal pain or bloating * Pain not relieved by pain medicine ordered * There is increased drainage or redness from any incision * A large amount of rectal bleeding greater than 2-3 tablespoons. (If you had a polyp/s removed or have hemorrhoids, a small amount of blood - from the rectum is to be expected.) * You have any unanswered questions or concerns. IN THE EVENT OF A SERIOUS EMERGENCY, GO TO THE NEAREST EMERGENCY ROOM Your discharge instructions were prepared by provider Anastacio Edgar. Patient Instructions Signature Page Mary Ann Dawkins Patient (or Guardian) Signature/Date: I have read and understand the instructions given to me by my caregivers. Caregiver/RN/Doctor Signature/Date: The above-named patient and/or guardian has received patient instructions on this date. + Original Patient Signature Page (only) stays with chart. Please make copy for patient.
[2017-02-18 10:06] VITALS: BP 165/96; PULSE 72; O2SAT 100
--- NOTE | 2017-02-18 10:11 | Anesthesiology Progress Note ---
Anesthesia Post Op Note Date & Time February 18, 2017 at 10:09 Vital Signs Pain Intensity: 0 Vital Signs Past 12 Hours Date Time Temp Pulse Resp B/P Pulse Ox O2 Delivery O2 Flow Rate FiO2 02/18/17 10:06 72 20 165/96 100 Room Air 02/18/17 10:02 77 20 165/114 100 Room Air 02/18/17 09:53 82 20 173/105 98 Room Air 02/18/17 09:52 80 18 173/109 99 Room Air 02/18/17 09:50 88 18 170/107 97 Room Air 02/18/17 09:36 84 16 166/92 97 Room Air 02/18/17 09:21 84 16 114/68 97 Room Air 02/18/17 08:29 36.7 89 20 136/103 99 Room Air Notes Mental Status: alert / awake / arousable, participated in evaluation Pt Amnestic to Procedure: Yes Nausea / Vomiting: adequately controlled Pain: adequately controlled Airway Patency, RR, SpO2: stable & adequate BP & HR: stable & adequate Hydration State: stable & adequate Anesthetic Complications: no major complications apparent The patient has a h/o HTN. She took her BP meds yesterday but not today. She was given labetalol 10mg IV which improved her BP to 165/96 prior to discharge. She was instructed to take her BP meds when she goes home. She understands and agrees.
== END | disposition home or self-care (01) ==
LOC: C.GI 08:03
PROVIDERS: ATTEND Internal Medicine
DX: K52.9 Noninfective gastroenteritis and colitis, unspecified (principal); K64.8 Other hemorrhoids; K25.3 Acute gastric ulcer without hemorrhage or perforation; I10 Essential (primary) hypertension; K21.9 Gastro-esophageal reflux disease without esophagitis; D75.9 Disease of blood and blood-forming organs, unspecified; M81.0 Age-related osteoporosis without current pathological fracture; F32.9 Major depressive disorder, single episode, unspecified; F41.9 Anxiety disorder, unspecified; E07.9 Disorder of thyroid, unspecified; M19.90 Unspecified osteoarthritis, unspecified site; Z83.79 Family history of other diseases of the digestive system; Z79.899 Other long term (current) drug therapy

== ENCOUNTER → 2017-02-24 | Outpatient (CLI) | payer OTHER ==
[~2017-02-24] MED LIST changes: -LABETALOL HCL IV 5 MG/ML 20ML IV ONE; -LIDOCAINE HCL 2% 2 ML VIAL (20MG/ML) ONE; -MIDAZOLAM HCL 1 MG/ML 2ML VIAL ONE; -ONDANSETRON INJ 2 MG/ML 2 ML VIAL ONE; -PROPOFOL IV EMULSION 10 MG/ML 20 ML VIAL IV ONE; -SODIUM CHLORIDE 0.9% 500ML 500 ML IV ONE
== END | disposition home or self-care (01) ==
LOC: C.LABPBG 13:05
PROVIDERS: ATTEND Family Medicine
DX: Z11.59 Encounter for screening for other viral diseases (principal); E03.9 Hypothyroidism, unspecified; D64.9 Anemia, unspecified; I10 Essential (primary) hypertension

== ENCOUNTER → 2017-05-24 | Outpatient (CLI) | payer OTHER ==
[~2017-05-24] MED LIST changes: -PROM25SU28 PR
== END | disposition home or self-care (01) ==
LOC: C.LABPBG 15:35
PROVIDERS: ATTEND Physician Assistant
DX: D64.9 Anemia, unspecified (principal); K21.9 Gastro-esophageal reflux disease without esophagitis

== ENCOUNTER 2017-12-29 13:48 | Emergency (ER) | payer OTHER ==
[~2017-12-29] VITALS: Ht 160 cm; Wt 59.0 kg
[2017-12-29 13:57] VITALS: BP 109/76; PULSE 116; TEMP 36.5; O2SAT 96; Ht 160 cm; Wt 59.0 kg
[2017-12-29] MEDS ORDERED: SUCR1TAB29 PO (14:32)
[2017-12-29] MEDS ORDERED: PRT/20 PO (14:32)
[2017-12-29] MEDS ORDERED: STOMACH MED PO (14:32)
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
[2017-12-29] MEDS ORDERED: ONDANSETRON INJ 2 MG/ML 2 ML VIAL IV STA (14:48)
[2017-12-29] MEDS ORDERED: OPTIRAY 320 IV PRN (15:00)
[2017-12-29 15:01] LABS: BASO % 0.4 %; BASO ABS # 0.03 K/uL (0-0.2); EOS % 6.5 %; EOS ABS # 0.48 K/uL (0-0.5); HEMOGLOBIN 9.4 g/dL (12.0-16.0); IG# 0.04 K/uL (0.00-0.02); MEAN CELL VOLUME 94.2 fL (80-100); MEAN CORPUSCULAR HEMOGLOBIN 30.5 pg (25-34); MEAN CORPUSCULAR HGB CONC 32.4 g/dl (32-36); MEAN PLATELET VOLUME 8.6 fL (7.4-10.4); MONO ABS # 0.44 K/uL (0.11-0.59); NEUT % 56.6 %; NEUT ABS # 4.15 K/uL (1.4-6.5); PLATELET COUNT 395 K/uL (130-400); RED CELL DISTRIBUTION WIDTH CV 15.5 % (11.5-14.5); RED CELL DISTRIBUTION WIDTH SD 52.8 fL (36.4-46.3); WHITE BLOOD COUNT 7.34 K/uL (4.8-10.8)
[2017-12-29 15:26] LABS: ALBUMIN 3.1 gm/dl (3.4-5.0); CALCIUM 8.9 mg/dl (8.5-10.1); CREATININE 0.88 mg/dl (0.60-1.20); POTASSIUM 3.8 mmol/L (3.5-5.1)
[2017-12-29 15:29] LABS: TOTAL PROTEIN 6.7 gm/dl (6.4-8.2)
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
--- NOTE | 2017-12-29 17:22 | DIAGNOSTIC IMAGING REPORT ---
L LOWER EXTREMITY WITH CLINICAL HISTORY: pain swelling LLE knee down ? infection/hematoma/fx TECHNIQUE: Transaxial acquisition with multi axial reformatted images COMPARISON STUDY: None FINDINGS: Moderate generalized soft tissue edema anterior and medial aspect of the left lower leg. This primarily is within the subcutaneous fat. There is a trace amount of fluid surrounding the muscle bundles. There is a small amount of edematous change medial as well as lateral aspect of the left ankle and foot. Mild edematous change of the plantar aspect of the foot is also noted. No acute bony abnormality. There is most consistent with that of a nonspecific cellulitis IMPRESSION: Generalized soft tissue edema/cellulitis of the subcutaneous fat involving the medial and anterior aspect of the lower leg ankle and foot. No evidence for drainable abscess or collection. No acute bony abnormality. The above report was generated using voice recognition software. It may contain grammatical, syntax or spelling errors. Electronically signed by: Nicolas Quezada M.D. 12/29/2017 5:21 PM Dictated Date/Time: 12/29/2017 5:14 PM
[2017-12-29] MEDS ORDERED: HYDROmorphone INJ 1 MG/ML SYR ONE ×2 (18:26→20:30)
[2017-12-29] MEDS ORDERED: ALUMINUM/MAGNESIUM SUSP 30 ML UDC ONE ×2 (18:26→21:00)
[2017-12-29] MEDS ORDERED: LIDOCAINE HCL 2% VISC SOLN 20 ML UDC ONE (18:26)
[2017-12-29] MEDS ORDERED: CEFTRIAXONE SOD INJ 1 GM ADDVIAL ONE (20:29)
[2017-12-29] MEDS ORDERED: OXYCODONE IR HOME PACK PO ONE (21:00)
== END 2017-12-29 21:30 | disposition home or self-care (01) ==
LOC: C.EDB 13:50 → C.EDD 21:30
DX: L03.116 Cellulitis of left lower limb (principal); Z98.890 Other specified postprocedural states

== ENCOUNTER 2022-03-31 13:18 | Inpatient (IN) ==
[~2022-03-31 13:18] MED LIST changes: -ASCO250T4 PO; -ATV5 PO; -BUPR150T7 PO; -CALC500C70 PO; -CLB/200 PO; -HYDR-3763 PO; -HYDR25TA4 PO; -LEVO50TA PO; -LSNP/30 PO; -MULTTAB58 PO; -ONDA4TAB46 PO; +PIPERACILLIN/TAZOBACTAM 4.5 GM/120 ML BAG IV ONE; -PRLSR20 PO; -PRM625 PO; -SERT50TA PO; -SNT/10 PO; -SUMA100T16 PO; -TIZA4CAP PO
--- NOTE | 2022-03-31 13:25 | Emergency Department Note ---
Impression & Plan UGI bleed, Hypomagnesemia, Acute dehydration, Elevated lactic acid level, Symptomatic anemia ED Provider Note NAME: FATEMEH SWAIN AGE: 61 SEX: F : 1960 ARRIVES VIA: Ambulance INFORMANT: Patient, ED PROVIDER(S): Clayton Page MD Chief Complaint: Shortness of breath, weakness HPI: Patient presents due to concern for shortness of breath upper respiratory symptoms and weakness. The patient had presented in the outpatient setting is referred here for further evaluation treatment as the patient reportedly had a low pulse ox in the 70s and 80s. The patient had been placed on a 10 L via oxime mask and the patient was still satting at 83. The patient did have a sat in the high 90s with EMS on 15 L nonrebreather. The patient does complain of some shortness of breath and cough postnasal drip type symptoms and associated weakness. Patient denies any recent travel surgeries or procedures. The pat ient states she is vaccinated for COVID-19 including booster shot. Patient denies any nausea vomiting or chest pain. Patient denies any abdominal pain. ROS: See HPI for pertinent positives and negatives. A total of 10 systems were reviewed and otherwise negative. Past medical history: See below Surgical history: See below Social history: See below Physical Exam: GENERAL: Moderately ill in appearance, tachypneic. Pale in appearance. EYE EXAM: Normal conjunctiva. PERRL, no anisocoria and EOM's grossly intact w/o pain. OROPHARYNX: Dry mucus membranes. Grossly normal dentition. NECK: Supple, no nuchal rigidity, no adenopathy, non-tender. No signs of meningismus. LUNGS: Clear to auscultation. Normal chest wall mechanics. HEART: Tachycardic and regular, no MRG. ABDOMEN: Abdomen soft, non-tender, normo-active bowel sounds, no masses, no rebound or guarding. BACK: No CVA TTP. SKIN: No rashes and no bruising. UPPER EXTREMITIES: Upper extremities are grossly normal. LOWER EXTREMITIES: Grossly normal, no edema. NEURO EXAM: A&O x3, cranial nerves II-XII grossly intact, normal speech, moves all 4 extremities on command w/o issue. Differential diagnoses: Reactive airway disease, pneumonia, pneumothorax, COPD, CHF, infections, cardiac ischemia, pulmonary embolism, musculoskeletal, gastrointestinal, as well as other pathologies. Course: Patient was seen and evaluated the bedside. Full history physical exam was performed. EKG interpreted by me Sinus tachycardia, rate 114, normal intervals, normal axis, no ST changes. Imaging Studies: See Below [Cardiac monitoring: An order was placed for continuous cardiac monitoring. The monitor shows a rate of with rhythm.] MDM: Patient presented due to concern for shortness of breath and hypoxemia. The patient was seen in the large resuscitation room. The patient was placed on BiPAP initially to monitor the patient's work of breathing. The patient did have blood work completed along with blood cultures empiric antibiotics and a CT angiography of the chest in addition to stat chest x-ray. Patient was also ordered IV fluids given the patient's weakness and decreased p.o. intake. Blood work was obtained. The patient is a normal white count. The patient is have a hemoglobin of 8 and most recent from May of last year shows 13. Given this I did perform a rectal exam with a female cub reporter at the bedside nurse Jacquelyn. The patient did have dark stool and was heme positive. After further discussion with the patient the patient did admit to having dark stools last 2 days. Patient denies any alcohol or tobacco use the patient does not use NSAIDs. Patient was ordered blood. The patient was ordered PPI bolus and drip. The patient states that he does have a history of peptic ulcer disease most recently had an EGD completed about a year ago and stated that she did not have any evidence of ulceration at that time. Patient's kidney function is unremarkable. VBG shows normal VBG pH is 7.4. The patient does have a BUN of 40 with elevated BUN to creatinine ratio which may be consistent with dehydration and concomitant upper GI bleeding. Initial lactate of 2.6. The patient was ordered additional IV fluids. The patient was consented for blood and 1 unit was ordered for emergent transfusion uncrossed. Second unit was also ordered. Patient CT angiography of the chest was negative. COVID-negative. Patient does have elevated troponin but believe this may be secondary to demand. EKG with no obvious ischemic changes. Patient does have some hypomagnesemia. I did speak with the on-call hospitalist ISIDRA Bo and the patient was admitted by Dr. Pineda. I also did speak with Dr. Edgar with gastroenterology and he is aware the patient. Critical Care: I have personally spent 77 minutes of critical care time in direct management of this patient. This includes bedside care, interpretation of diagnostic studies, and testing, discussion with consultants, patient, and family members, and other require inpatient management activities. This 77 minutes is in excess of all separately billable procedures. Past Med/Surg History Medical History Cervical stenosis of spinal canal Cholecystitis Vomiting and diarrhea Surgical History S/P JOVANA-BSO (total abdominal hysterectomy and bilateral salpingo-oophorectomy) Status post laparoscopic Krystyna fundoplication Social History Smoking Status: Never smoker Hx Alcohol Use: No Hx Substance Use: No Feels Safe at Home: Yes Allergies Allergies Allergy/AdvReac Type Severity Reaction Status Date / Time Bactrim Allergy Unknown LIPS Verified 12/29/17 14:31 SWELLING sulfamethoxazole [Bactrim] Allergy Unknown LIPS Verified 03/31/22 15:23 SWELLING trimethoprim [Bactrim] Allergy Unknown LIPS Verified 03/31/22 15:23 SWELLING methotrexate AdvReac Unknown GI UPSET Verified 03/31/22 15:23 Home Meds Home Medications Medication Instructions Recorded Confirmed amlodipine 10 mg tablet 10 mg PO DAILY 03/31/22 03/31/22 bupropion HCl 200 mg tablet,12 hr 200 mg PO BID 03/31/22 03/31/22 sustained-release calcium carbonate 600 mg-vitamin 1 tab PO DAILY 03/31/22 03/31/22 D3 10 mcg (400 unit) tablet (Calcium 600 + D(3)) estradiol 1 mg tablet 1 mg PO DAILY 03/31/22 03/31/22 gabapentin 100 mg capsule 100 mg PO TID 03/31/22 03/31/22 hydrochlorothiazide 12.5 mg tablet 12.5 mg PO DAILY 03/31/22 03/31/22 hydrocodone 10 mg-acetaminophen 1 tab PO .Q4-6HR PRN 03/31/22 03/31/22 325 mg tablet hydroxyzine HCl 25 mg tablet 25 mg PO TID PRN 03/31/22 03/31/22 levothyroxine 50 mcg tablet 50 mcg PO DAILY 03/31/22 03/31/22 lisinopril 40 mg tablet 40 mg PO DAILY 03/31/22 03/31/22 methocarbamol 500 mg tablet 500 mg PO Q8 PRN 03/31/22 03/31/22 metoprolol succinate 100 mg 100 mg PO DAILY 03/31/22 03/31/22 tablet,extended release 24 hr mirtazapine 30 mg tablet 30 mg PO HS 03/31/22 03/31/22 multivitamin 1 tab PO DAILY 03/31/22 03/31/22 pantoprazole 40 mg tablet,delayed 40 mg PO BID 03/31/22 03/31/22 release sucralfate 1 gram tablet (Carafate) 1 g PO ACHS 03/31/22 03/31/22 sumatriptan succinate 100 mg tablet 100 mg PO DIRECTED PRN 03/31/22 03/31/22 sumatriptan succinate 4 mg/0.5 mL 4 mg SUBCUT DIRECTED PRN 03/31/22 03/31/22 subcutaneous pen injector zaleplon 10 mg capsule 10 mg PO HS PRN 03/31/22 03/31/22 Results & Data (ED) Vital Signs Vital Signs - 24 hr 03/31/22 13:11 03/31/22 13:25 03/31/22 13:26 Temperature 36.8 C Temperature Source Oral Pulse Rate 114 H 122 H Pulse Rate [Apical] Pulse Rhythm Pulse Rhythm [Apical] Pulse Strength Respiratory Rate 24 28 H Respiratory Effort / Characteristics Short of Breath Spontaneous Respiratory Depth Normal Respiratory Pattern Tachypnea Blood Pressure 99/81 L Blood Pressure [Left Arm] Blood Pressure Mean 87 Blood Pressure Mean [Left Arm] Blood Pressure Position Blood Pressure Position [Left Arm] Pulse Oximetry 100 100 100 Oxygen Delivery Method Non-rebreather BiPAP Oxygen Flow Rate 15 Fraction of Inspired Oxygen 30 Sepsis Recent Fever Within 48 Hours No Sepsis New/Unexplained Change in Mental Status No Sepsis Action Taken by Nursing Physician Notified 03/31/22 13:30 03/31/22 13:40 03/31/22 13:49 Temperature Temperature Source Pulse Rate Pulse Rate [Apical] 110 H 103 H Pulse Rhythm Pulse Rhythm [Apical] Regular Regular Pulse Strength Respiratory Rate 24 20 Respiratory Effort / Characteristics Short of Breath Non-Labored Respiratory Depth Normal Normal Normal Respiratory Pattern Tachypnea Blood Pressure Blood Pressure [Left Arm] 130/86 146/84 H Blood Pressure Mean Blood Pressure Mean [Left Arm] 100 104 Blood Pressure Position Blood Pressure Position [Left Arm] Pulse Oximetry 100 100 Oxygen Delivery Method BiPAP BiPAP Oxygen Flow Rate Fraction of Inspired Oxygen 21 Sepsis Recent Fever Within 48 Hours Sepsis New/Unexplained Change in Mental Status Sepsis Action Taken by Nursing 03/31/22 14:10 03/31/22 14:15 03/31/22 14:30 Temperature 36.5 C Temperature Source Oral Pulse Rate Pulse Rate [Apical] 106 H 109 H 104 H Pulse Rhythm Pulse Rhythm [Apical] Regular Pulse Strength Respiratory Rate 19 22 19 Respiratory Effort / Characteristics Non-Labored Non-Labored Respiratory Depth Normal Respiratory Pattern Blood Pressure Blood Pressure [Left Arm] 125/81 106/75 117/97 Blood Pressure Mean Blood Pressure Mean [Left Arm] 95 85 103 Blood Pressure Position Blood Pressure Position [Left Arm] Pulse Oximetry 100 100 97 Oxygen Delivery Method BiPAP BiPAP BiPAP Oxygen Flow Rate Fraction of Inspired Oxygen Sepsis Recent Fever Within 48 Hours Sepsis New/Unexplained Change in Mental Status Sepsis Action Taken by Nursing 03/31/22 14:43 03/31/22 15:00 03/31/22 15:10 Temperature 36.5 C 36.6 C Temperature Source Oral Oral Pulse Rate 110 H 107 H Pulse Rate [Apical] Pulse Rhythm Regular Pulse Rhythm [Apical] Pulse Strength Normal Respiratory Rate 22 16 Respiratory Effort / Characteristics Respiratory Depth Respiratory Pattern Blood Pressure 117/97 108/84 Blood Pressure [Left Arm] Blood Pressure Mean 103 92 Blood Pressure Mean [Left Arm] Blood Pressure Position Lying Blood Pressure Position [Left Arm] Pulse Oximetry 94 100 97 Oxygen Delivery Method BiPAP Nasal Cannula Oxygen Flow Rate 3 Fraction of Inspired Oxygen Sepsis Recent Fever Within 48 Hours Sepsis New/Unexplained Change in Mental Status Sepsis Action Taken by Nursing 03/31/22 15:15 03/31/22 15:30 03/31/22 15:45 Temperature 36.6 C 37.1 C Temperature Source Oral Oral Pulse Rate 108 H 114 H Pulse Rate [Apical] 116 H Pulse Rhythm Pulse Rhythm [Apical] Pulse Strength Respiratory Rate 20 20 20 Respiratory Effort / Characteristics Non-Labored Respiratory Depth Respiratory Pattern Blood Pressure 132/95 126/68 Blood Pressure [Left Arm] 132/88 Blood Pressure Mean 107 87 Blood Pressure Mean [Left Arm] 102 Blood Pressure Position Blood Pressure Position [Left Arm] Pulse Oximetry 100 97 100 Oxygen Delivery Method Nasal Cannula Oxygen Flow Rate 3 3 3 Fraction of Inspired Oxygen Sepsis Recent Fever Within 48 Hours Sepsis New/Unexplained Change in Mental Status Sepsis Action Taken by Nursing 03/31/22 16:37 03/31/22 16:45 Temperature Temperature Source Pulse Rate 103 H Pulse Rate [Apical] 107 H Pulse Rhythm Pulse Rhythm [Apical] Pulse Strength Respiratory Rate 19 18 Respiratory Effort / Characteristics Non-Labored Respiratory Depth Normal Respiratory Pattern Blood Pressure 141/86 H Blood Pressure [Left Arm] 118/76 Blood Pressure Mean 104 Blood Pressure Mean [Left Arm] 90 Blood Pressure Position Blood Pressure Position [Left Arm] Lying Pulse Oximetry 100 100 Oxygen Delivery Method Nasal Cannula Oxygen Flow Rate 3 3 Fraction of Inspired Oxygen Sepsis Recent Fever Within 48 Hours Sepsis New/Unexplained Change in Mental Status Sepsis Action Taken by Retirement Medications Current Medication List: was personally reviewed by me Laboratory Data Attestation: I reviewed the patient's lab results. Result diagrams: 03/31/22 13:40 03/31/22 13:40 Lab Results 03/31/22 03/31/22 03/31/22 Range/Units 13:28 13:40 13:40 WBC 5.51 (4.8-10.8) K/uL RBC 2.64 L (4.2-5.4) M/uL Hgb 8.3 L (12.0-16.0) g/dL POC Hgb (12.0-16.0) g/dl Hct 25.4 L (37-47) % POC Hct (37-47) % MCV 96.2 (80-100) fL MCH 31.4 (25-34) pg MCHC 32.7 (32-36) g/dL RDW Std Deviation 47.7 H (36.4-46.3) fL RDW Coeff of Lissa 13.7 (11.5-14.5) % Plt Count 326 (130-400) K/uL MPV 9.3 (7.4-10.4) fL Immature Gran % (Auto) 0.2 % Neut % (Auto) 71.1 % Lymph % (Auto) 24.3 % [place] % (Auto) 3.8 % Eos % (Auto) 0.4 % Baso % (Auto) 0.2 % Neut # (Auto) 3.92 (1.4-6.5) K/uL Lymph # (Auto) 1.34 (1.2-3.4) K/uL [place] # (Auto) 0.21 (0.11-0.59) K/uL Eos # (Auto) 0.02 (0-0.5) K/uL Baso # (Auto) 0.01 (0-0.2) K/uL Immature Gran # (Auto) 0.01 (0.00-0.02) K/uL PT (9.0-12.0) Seconds INR (0.9-1.1) APTT (21.0-31.0) Seconds PTT Ratio VBG pH (7.36-7.41) VBG pCO2 (38-50) mmHg VBG pO2 mmHg VBG HCO3 mmol/L VBG O2 Saturation % VBG Base Excess mEq/L POC Sodium (135-144) mmol/L Sodium (136-145) mmol/L POC Potassium (3.3-5.0) mmol/L Potassium (3.5-5.1) mmol/L POC Chloride (101-112) mmol/L Chloride (98-107) mmol/L Carbon Dioxide (21-32) mmol/L POC Total CO2 (24-31) mmol/L Anion Gap (3-11) POC Anion Gap (16-25) mmol/L POC BUN (7-18) mg/dl BUN (6-23) mg/dl Creatinine (0.6-1.2) mg/dl POC Creatinine (0.6-1.3) mg/dl Est Cr Clr Drug Dosing Est GFR ( Amer) ml/min Est GFR (Non-Af Amer) ml/min BUN/Creatinine Ratio (10-20) Glucose (70-99(Fasting)) mg/dl POC Glucose (other) (70-99) mg/dl Lactate (0.4-2.0) mmol/L Calcium (8.5-10.1) mg/dl POC Ioniz Calcium Yolanda (1.12-1.32) mmol/l Magnesium (1.7-2.4) mg/dl Total Bilirubin (0.2-1.0) mg/dl AST (13-39) U/L ALT (7-52) U/L Alkaline Phosphatase (34-104) U/L Troponin I High Sens (0-14) pg/ml Total Protein (6.0-8.3) gm/dl Albumin (3.4-5.0) gm/dl Globulin (2.5-4.0) gm/dl Albumin/Globulin Ratio (0.9-2) Procalcitonin < 0.05 (0-0.5) ng/ml SARS-CoV-2, RNA, NAAT NEGATIVE (NEGATIVE) Blood Type Antibody Screen Crossmatch 03/31/22 03/31/22 03/31/22 Range/Units 13:40 13:40 13:40 WBC (4.8-10.8) K/uL RBC (4.2-5.4) M/uL Hgb (12.0-16.0) g/dL POC Hgb (12.0-16.0) g/dl Hct (37-47) % POC Hct (37-47) % MCV (80-100) fL MCH (25-34) pg MCHC (32-36) g/dL RDW Std Deviation (36.4-46.3) fL RDW Coeff of Lissa (11.5-14.5) % Plt Count (130-400) K/uL MPV (7.4-10.4) fL Immature Gran % (Auto) % Neut % (Auto) % Lymph % (Auto) % [place] % (Auto) % Eos % (Auto) % Baso % (Auto) % Neut # (Auto) (1.4-6.5) K/uL Lymph # (Auto) (1.2-3.4) K/uL [place] # (Auto) (0.11-0.59) K/uL Eos # (Auto) (0-0.5) K/uL Baso # (Auto) (0-0.2) K/uL Immature Gran # (Auto) (0.00-0.02) K/uL PT 10.4 (9.0-12.0) Seconds INR 1.0 (0.9-1.1) APTT 23.4 (21.0-31.0) Seconds PTT Ratio 0.9 VBG pH (7.36-7.41) VBG pCO2 (38-50) mmHg VBG pO2 mmHg VBG HCO3 mmol/L VBG O2 Saturation % VBG Base Excess mEq/L POC Sodium (135-144) mmol/L Sodium 137 (136-145) mmol/L POC Potassium (3.3-5.0) mmol/L Potassium 4.3 (3.5-5.1) mmol/L POC Chloride (101-112) mmol/L Chloride 106 (98-107) mmol/L Carbon Dioxide 21 (21-32) mmol/L POC Total CO2 (24-31) mmol/L Anion Gap 10 (3-11) POC Anion Gap (16-25) mmol/L POC BUN (7-18) mg/dl BUN 40 H (6-23) mg/dl Creatinine 1.01 (0.6-1.2) mg/dl POC Creatinine (0.6-1.3) mg/dl Est Cr Clr Drug Dosing Not Reportable Est GFR ( Amer) 69.1 ml/min Est GFR (Non-Af Amer) 59.6 ml/min BUN/Creatinine Ratio 39.6 H (10-20) Glucose 117 H (70-99(Fasting)) mg/dl POC Glucose (other) (70-99) mg/dl Lactate 2.6 H* (0.4-2.0) mmol/L Calcium 8.6 (8.5-10.1) mg/dl POC Ioniz Calcium Yolanda (1.12-1.32) mmol/l Magnesium 1.4 L (1.7-2.4) mg/dl Total Bilirubin 0.3 (0.2-1.0) mg/dl AST 10 L (13-39) U/L ALT 8 (7-52) U/L Alkaline Phosphatase 47 (34-104) U/L Troponin I High Sens 19.2 H (0-14) pg/ml Total Protein 5.7 L (6.0-8.3) gm/dl Albumin 3.2 L (3.4-5.0) gm/dl Globulin 2.5 (2.5-4.0) gm/dl Albumin/Globulin Ratio 1.3 (0.9-2) Procalcitonin (0-0.5) ng/ml SARS-CoV-2, RNA, NAAT (NEGATIVE) Blood Type Antibody Screen Crossmatch 03/31/22 03/31/22 03/31/22 Range/Units 13:40 13:40 14:05 WBC (4.8-10.8) K/uL RBC (4.2-5.4) M/uL Hgb (12.0-16.0) g/dL POC Hgb 10.2 L (12.0-16.0) g/dl Hct (37-47) % POC Hct 30 L (37-47) % MCV (80-100) fL MCH (25-34) pg MCHC (32-36) g/dL RDW Std Deviation (36.4-46.3) fL RDW Coeff of Lissa (11.5-14.5) % Plt Count (130-400) K/uL MPV (7.4-10.4) fL Immature Gran % (Auto) % Neut % (Auto) % Lymph % (Auto) % [place] % (Auto) % Eos % (Auto) % Baso % (Auto) % Neut # (Auto) (1.4-6.5) K/uL Lymph # (Auto) (1.2-3.4) K/uL [place] # (Auto) (0.11-0.59) K/uL Eos # (Auto) (0-0.5) K/uL Baso # (Auto) (0-0.2) K/uL Immature Gran # (Auto) (0.00-0.02) K/uL PT (9.0-12.0) Seconds INR (0.9-1.1) APTT (21.0-31.0) Seconds PTT Ratio VBG pH 7.43 H (7.36-7.41) VBG pCO2 33 L (38-50) mmHg VBG pO2 20 mmHg VBG HCO3 22 mmol/L VBG O2 Saturation < 60.0 % VBG Base Excess -1.7 mEq/L POC Sodium 137 (135-144) mmol/L Sodium (136-145) mmol/L POC Potassium 4.1 (3.3-5.0) mmol/L Potassium (3.5-5.1) mmol/L POC Chloride 106 (101-112) mmol/L Chloride (98-107) mmol/L Carbon Dioxide (21-32) mmol/L POC Total CO2 21 L (24-31) mmol/L Anion Gap (3-11) POC Anion Gap 16.0 (16-25) mmol/L POC BUN 33 H (7-18) mg/dl BUN (6-23) mg/dl Creatinine (0.6-1.2) mg/dl POC Creatinine 0.9 (0.6-1.3) mg/dl Est Cr Clr Drug Dosing Est GFR ( Amer) ml/min Est GFR (Non-Af Amer) ml/min BUN/Creatinine Ratio (10-20) Glucose (70-99(Fasting)) mg/dl POC Glucose (other) 119 H (70-99) mg/dl Lactate (0.4-2.0) mmol/L Calcium (8.5-10.1) mg/dl POC Ioniz Calcium Yolanda 1.09 L (1.12-1.32) mmol/l Magnesium (1.7-2.4) mg/dl Total Bilirubin (0.2-1.0) mg/dl AST (13-39) U/L ALT (7-52) U/L Alkaline Phosphatase (34-104) U/L Troponin I High Sens (0-14) pg/ml Total Protein (6.0-8.3) gm/dl Albumin (3.4-5.0) gm/dl Globulin (2.5-4.0) gm/dl Albumin/Globulin Ratio (0.9-2) Procalcitonin (0-0.5) ng/ml SARS-CoV-2, RNA, NAAT (NEGATIVE) Blood Type O Positive Antibody Screen NEGATIVE Crossmatch See Detail 03/31/22 Range/Units 16:01 WBC (4.8-10.8) K/uL RBC (4.2-5.4) M/uL Hgb (12.0-16.0) g/dL POC Hgb (12.0-16.0) g/dl Hct (37-47) % POC Hct (37-47) % MCV (80-100) fL MCH (25-34) pg MCHC (32-36) g/dL RDW Std Deviation (36.4-46.3) fL RDW Coeff of Lissa (11.5-14.5) % Plt Count (130-400) K/uL MPV (7.4-10.4) fL Immature Gran % (Auto) % Neut % (Auto) % Lymph % (Auto) % [place] % (Auto) % Eos % (Auto) % Baso % (Auto) % Neut # (Auto) (1.4-6.5) K/uL Lymph # (Auto) (1.2-3.4) K/uL [place] # (Auto) (0.11-0.59) K/uL Eos # (Auto) (0-0.5) K/uL Baso # (Auto) (0-0.2) K/uL Immature Gran # (Auto) (0.00-0.02) K/uL PT (9.0-12.0) Seconds INR (0.9-1.1) APTT (21.0-31.0) Seconds PTT Ratio VBG pH (7.36-7.41) VBG pCO2 (38-50) mmHg VBG pO2 mmHg VBG HCO3 mmol/L VBG O2 Saturation % VBG Base Excess mEq/L POC Sodium (135-144) mmol/L Sodium (136-145) mmol/L POC Potassium (3.3-5.0) mmol/L Potassium (3.5-5.1) mmol/L POC Chloride (101-112) mmol/L Chloride (98-107) mmol/L Carbon Dioxide (21-32) mmol/L POC Total CO2 (24-31) mmol/L Anion Gap (3-11) POC Anion Gap (16-25) mmol/L POC BUN (7-18) mg/dl BUN (6-23) mg/dl Creatinine (0.6-1.2) mg/dl POC Creatinine (0.6-1.3) mg/dl Est Cr Clr Drug Dosing Est GFR ( Amer) ml/min Est GFR (Non-Af Amer) ml/min BUN/Creatinine Ratio (10-20) Glucose (70-99(Fasting)) mg/dl POC Glucose (other) (70-99) mg/dl Lactate 2.2 H* (0.4-2.0) mmol/L Calcium (8.5-10.1) mg/dl POC Ioniz Calcium Yolanda (1.12-1.32) mmol/l Magnesium (1.7-2.4) mg/dl Total Bilirubin (0.2-1.0) mg/dl AST (13-39) U/L ALT (7-52) U/L Alkaline Phosphatase (34-104) U/L Troponin I High Sens (0-14) pg/ml Total Protein (6.0-8.3) gm/dl Albumin (3.4-5.0) gm/dl Globulin (2.5-4.0) gm/dl Albumin/Globulin Ratio (0.9-2) Procalcitonin (0-0.5) ng/ml SARS-CoV-2, RNA, NAAT (NEGATIVE) Blood Type Antibody Screen Crossmatch Administered Medications Pantoprazole Sodium 40 mg/ (Dextrose) 100 mls @ 20 mls/hr IV Q5H SAMANTHA Stop: 04/30/22 14:44 Last Admin: 03/31/22 15:32 Dose: 8 mg/hr, 20 mls/hr Documented by: [id number] Magnesium Sulfate/Dextrose (Magnesium Sulfate / D5w) 1 gm in 100 mls @ 50 mls/hr IV Q2H SAMANTHA Stop: 03/31/22 21:14 Last Admin: 03/31/22 16:09 Dose: 50 mls/hr Documented by: [id number] Discontinued Medications Sodium Chloride (Nss 1000ml) 1,000 mls @ 999 mls/hr IV .Q1H1M SAMANTHA Stop: 03/31/22 14:30 Last Infusion: 03/31/22 14:50 Dose: 0 mls/hr Documented by: [id number] Admin: 03/31/22 13:44 Dose: 999 mls/hr Documented by: [id number] Piperacillin Sod/Tazobactam Sod (Zosyn) 4.5 gm in 120 mls @ 240 mls/hr IV NOW ONE Stop: 03/31/22 13:47 Last Infusion: 03/31/22 14:50 Dose: 0 mls/hr Documented by: [id number] Admin: 03/31/22 14:13 Dose: 240 mls/hr Documented by: [id number] Pantoprazole Sodium (Protonix Bolus/Drip) 0 mls @ 1 mls/hr IV ONE STA Stop: 03/31/22 14:18 Last Infusion: 03/31/22 15:48 Dose: 0 mls/hr Documented by: [id number] Admin: 03/31/22 15:48 Dose: 1 mls/hr Documented by: [id number] Pantoprazole Sodium 80 mg/ (Dextrose) 120 mls @ 400 mls/hr IV NOW ONE Stop: 03/31/22 14:34 Last Infusion: 03/31/22 15:32 Dose: 0 mls/hr Documented by: [id number] Admin: 03/31/22 15:02 Dose: 400 mls/hr Documented by: [id number] Sodium Chloride (Nss 1000ml) 1,000 mls @ 999 mls/hr IV .Q1H1M ONE Stop: 03/31/22 15:24 Last Infusion: 03/31/22 16:09 Dose: 0 mls/hr Documented by: [id number] Admin: 03/31/22 14:50 Dose: 999 mls/hr Documented by: [id number] Ioversol (Optiray 320 125ml) 120 ml IV ONCE ONE Stop: 03/31/22 14:02 Last Admin: 03/31/22 14:01 Dose: 120 ml Documented by: [id number] Imaging Data Radiologist's Impression: Chest CTA 03/31/22 13:18 CT angio chest PE protocol CLINICAL HISTORY: PE, sob, hypoxemia TECHNIQUE: Multidetector row helical CT of the chest was performed with angiographic protocol. Coronal and sagittal reformations were obtained. Coronal and sagittal MIPS were obtained from the axial data set and were submitted for review. Automated dose lowering techniques and/or adjustment according to patient size were utilized for this exam. CT DOSE: 246.68 mGy.cm Comparison: Comparison is made to chest radiograph 03/31/2022 FINDINGS: Lungs and pleura: Atelectasis is seen in the left lung base. Heart and pericardium: Heart size is normal. No pericardial effusion. Vessels: No evidence of pulmonary embolism. Mediastinum and jesusita: Unremarkable. Chest wall and lower neck: A right breast implant is seen. Abdomen: A hiatal hernia is seen. Bones: Degenerative changes in the thoracic spine. Multilevel bony hemangiomas are seen. Anterior cervical fixation hardware is partially visualized. IMPRESSION: No evidence of pulmonary embolism or other acute abnormality such as pneumonia. ACT 112: Negative or not required by law. Electronically signed by: Aamir Escobar M.D. 03/31/2022 2:09 PM Chest X-Ray 03/31/22 13:19 XR chest 1V portable CLINICAL HISTORY: SEPSIS TECHNIQUE: Single frontal radiograph of the chest was obtained. Comparison: Comparison is made to chest radiograph 12/29/2017 FINDINGS: Anterior cervical fixation hardware is seen. Redemonstration of scoliosis. The cardiomediastinal silhouette is normal. The lungs are clear. No evidence of pleural effusion or pneumothorax. IMPRESSION: No acute abnormalities and in particular no evidence of pneumonia. ACT 112: Negative or not required by law. Electronically signed by: Aamir Escobar M.D. 03/31/2022 1:38 PM Discharge Plan Visit Data Chief Complaint: Shortness of Breath/Dyspnea Stated Complaint: SOB, WEAKNESS, ILLNESS ED Provider: Clayton Page Discharge Problem: UGI bleed, Hypomagnesemia, Acute dehydration, Elevated lactic acid level, Symptomatic anemia Patient Disposition: Admitted As Inpatient Forms Stand Alone Forms: [facility] Prescriptions Prescriptions: No Action multivitamin Tablet 1 tab PO DAILY RF: 0 methocarbamol 500 mg tablet 500 mg PO Q8 PRN (Reason: .FACIAL PAIN /MUSCLE SPASMS) RF: 0 sumatriptan succinate 100 mg tablet 100 mg PO DIRECTED PRN (Reason: Migraine Headache) RF: 0 sucralfate [Carafate] 1 gram Tablet 1 g PO ACHS RF: 0 metoprolol succinate 100 mg tablet extended release 24 hr 100 mg PO DAILY RF: 0 hydrocodone-acetaminophen 10-325 mg tablet 1 tab PO .Q4-6HR PRN (Reason: Pain) RF: 0 estradiol 1 mg tablet 1 mg PO DAILY RF: 0 amlodipine 10 mg tablet 10 mg PO DAILY RF: 0 levothyroxine 50 mcg tablet 50 mcg PO DAILY RF: 0 pantoprazole 40 mg tablet,delayed release (DR/EC) 40 mg PO BID RF: 0 mirtazapine 30 mg tablet 30 mg PO HS RF: 0 hydroxyzine HCl 25 mg tablet 25 mg PO TID PRN (Reason: Anxiety) RF: 0 zaleplon 10 mg capsule 10 mg PO HS PRN (Reason: Sleep) RF: 0 gabapentin 100 mg capsule 100 mg PO TID RF: 0 lisinopril 40 mg tablet 40 mg PO DAILY RF: 0 bupropion HCl 200 mg tablet sustained-release 12 hr 200 mg PO BID RF: 0 sumatriptan succinate 4 mg/0.5 mL pen injector 4 mg SUBCUT DIRECTED PRN (Reason: .ONSET OF MIGRAINE) RF: 0 calcium carbonate-vitamin D3 [Calcium 600 + D(3)] 600 mg-10 mcg (400 unit) Tablet 1 tab PO DAILY RF: 0 hydrochlorothiazide 12.5 mg tablet 12.5 mg PO DAILY RF: 0 Referrals Referrals: Stacia Olmedo CRNP [Primary Care Provider] -
[2022-03-31] MEDS ORDERED: SODIUM CHLORIDE 0.9% 1000ML 1,000 ML IV SCH (13:30)
--- NOTE | 2022-03-31 13:40 | XRay Report ---
XR chest 1V portable CLINICAL HISTORY: SEPSIS TECHNIQUE: Single frontal radiograph of the chest was obtained. Comparison: Comparison is made to chest radiograph 12/29/2017 FINDINGS: Anterior cervical fixation hardware is seen. Redemonstration of scoliosis. The cardiomediastinal silh ouette is normal. The lungs are clear. No evidence of pleural effusion or pneumothorax. IMPRESSION: No acute abnormalities and in particular no evidence of pneumonia. ACT 112: Negative or not required by law. Electronically signed by: Aamir Escobar M.D. 03/31/2022 1:38 PM
[2022-03-31 13:55] LABS: iSTAT Creatinine 0.9 mg/dl (0.6-1.3); iSTAT Hemoglobin 10.2 g/dl (12.0-16.0); iSTAT Ionized Calcium 1.09 mmol/l (1.12-1.32); iSTAT Potassium 4.1 mmol/L (3.3-5.0)
[2022-03-31 13:59] LABS: Base Excess VBG -1.7 mEq/L; HCO3 VBG 22 mmol/L; Oxygen Saturation VBG < 60.0 %; PCO2 VBG 33 mmHg (38-50); PO2 VBG 20 mmHg; pH VBG 7.43 (7.36-7.41)
[2022-03-31] MEDS ORDERED: OPTIRAY 320 125ml IV ONE (14:01)
[2022-03-31 14:03] LABS: Basophils # (auto) 0.01 K/uL (0-0.2); Basophils % (auto) 0.2 %; Eosinophils # (auto) 0.02 K/uL (0-0.5); Eosinophils % (auto) 0.4 %; Hematocrit (blood only) 25.4 % (37-47); Hemoglobin 8.3 g/dL (12.0-16.0); Immature Granulocytes # (auto) 0.01 K/uL (0.00-0.02); Immature Granulocytes % (auto) 0.2 %; Lymphocytes # (auto) 1.34 K/uL (1.2-3.4); Lymphocytes % (auto) 24.3 %; Mean Corpuscular Hemoglobin 31.4 pg (25-34); Mean Corpuscular Hgb Conc 32.7 g/dL (32-36); Mean Corpuscular Volume 96.2 fL (80-100); Mean Platelet Volume 9.3 fL (7.4-10.4); Monocytes # (auto) 0.21 K/uL (0.11-0.59); Monocytes % (auto) 3.8 %; Neutrophils # (auto) 3.92 K/uL (1.4-6.5); Neutrophils % (auto) 71.1 %; Platelet Count 326 K/uL (130-400); RDW Coefficient of Variation 13.7 % (11.5-14.5); RDW Standard Deviation 47.7 fL (36.4-46.3); Red Blood Count 2.64 M/uL (4.2-5.4); White Blood Count 5.51 K/uL (4.8-10.8)
--- NOTE | 2022-03-31 14:10 | CT Scan Report ---
CT angio chest PE protocol CLINICAL HISTORY: PE, sob, hypoxemia TECHNIQUE: Multidetector row helical CT of the chest was performed with angiographic protocol. Burgos l and sagittal reformations were obtained. Coronal and sagittal MIPS were obtained from the axial kyleigh a set and were submitted for review. Automated dose lowering techniques and/or adjustment according to patient size were utilized for this exam. CT DOSE: 246.68 mGy.cm Comparison: Comparison is made to chest radiograph 03/31/2022 FINDINGS: Lungs and pleura: Atelectasis is seen in the left lung base. Heart and pericardium: Heart size is normal. No pericardial effusion. Vessels: No evidence of pulmonary embolism. Mediastinum and jesusita: Unremarkable. Chest wall and lower neck: A right breast implant is seen. Abdomen: A hiatal hernia is seen. Bones: Degenerative changes in the thoracic spine. Multilevel bony hemangiomas are seen. Anterior cer vical fixation hardware is partially visualized. IMPRESSION: No evidence of pulmonary embolism or other acute abnormality such as pneumonia. ACT 112: Negative or not required by law. Electronically signed by: Aamir Escobar M.D. 03/31/2022 2:09 PM
[2022-03-31] MEDS ORDERED: PANTOprazole 80 MG in DEXTROSE 5% 100 ML IV ONE (14:17)
[2022-03-31] MEDS ORDERED: PANTOPRAZOLE BOLUS/DRIP 1 EA IV STA (14:17)
[2022-03-31] MEDS ORDERED: SODIUM CHLORIDE 0.9% 250 ML IV PRN ×3 (14:22→15:23)
[2022-03-31] MEDS ORDERED: SODIUM CHLORIDE 0.9% 1000ML 1,000 ML IV ONE (14:24)
[2022-03-31 14:27] LABS: Troponin I High Sensitivity 19.2 pg/ml (0-14)
[2022-03-31 14:28] LABS: Alanine Aminotransferase 8 U/L (7-52); Albumin Globulin Ratio 1.3 (0.9-2); Albumin Level 3.2 gm/dl (3.4-5.0); Alkaline Phosphatase 47 U/L (34-104); Anion Gap 10 (3-11); Aspartate Aminotransferase 10 U/L (13-39); BUN Creatinine Ratio 39.6 (10-20); Bilirubin,Total 0.3 mg/dl (0.2-1.0); Blood Urea Nitrogen 40 mg/dl (6-23); Calcium 8.6 mg/dl (8.5-10.1); Carbon Dioxide 21 mmol/L (21-32); Chloride 106 mmol/L (98-107); Est GFR (African American) 69.1 ml/min; Est GFR (Non-African American) 59.6 ml/min; Globulin 2.5 gm/dl (2.5-4.0); Glucose 117 mg/dl (70-99(Fasting)); Magnesium 1.4 mg/dl (1.7-2.4); Potassium 4.3 mmol/L (3.5-5.1); Sodium 137 mmol/L (136-145); Total Protein 5.7 gm/dl (6.0-8.3)
[2022-03-31 14:30] LABS: Partial Thromboplastin Ratio 0.9; Partial Thromboplastin Time 23.4 Seconds (21.0-31.0); Prothrombin Time 10.4 Seconds (9.0-12.0)
[2022-03-31] MEDS ORDERED: CALCIUM GLUCONATE 1,000 MG/60 ML BAG IV STA (15:03)
[2022-03-31] MEDS: PANTOprazole 40 MG in DEXTROSE 5% 100 ML IV SCH ×2 (15:32→19:44)
--- NOTE | 2022-03-31 15:42 | History & Physical Report ---
Date of Service March 31, 2022 Assessment & Plan (1) UGI bleed: Plan: GI bleed likely upper with epigastric burning, dark black stools, increase in BUN - Hx of fundoplication with previous ulcerations on current dual therapy of BID PPI and Carafate - she is not on any anti-platelet medications- Platelet count 326 - HGB 8.3--- (13.1 in 2020) - NPO - Protonix infusion already started- will continue this - Transfuse PRBC based on hemodynamic response and symptoms- currently symptomatic with dyspnea, tachycardia, elevated lactate - BP is stable - Maintain 2 Large bore IV at all times - GI consulted- appreciate assistance - IV calcium following first unit of PRBC (2) GERD (gastroesophageal reflux disease): Plan: As above with fundoplication (3) Hypomagnesemia: Plan: Mag 1.4 secondary to stool loss and no oral food intake - replete with 3 GM Mag- will likely need more in AM (4) Scoliosis: Plan: Chronic with chronic back pain - continue Tylenol for pain - Lidoderm patch added - Is on home oral hydrocodone- PRN narcotic IV while NPO (5) Scleroderma: Plan: No acute needs noted at this time (6) Migraines: Plan: 1 a month or less reported has triptan available (7) Hypothyroidism: Plan: Continue synthroid (8) HTN (hypertension): Plan: Continue BB, Continue Amlodipine, Continue lisinopril when hemodynamics proven stable and able to take PO - if needed can add PRN IV (9) Anxiety: Plan: NPO on home hydroxyzine, bupropion- if needed can add PRN IV dose of Ativan (10) Hypothyroidism: Plan: Continue synthroid when able to tolerate PO (11) Depression: Plan: Hold mirtazapine and hydroxyzine while NPO History of Present Illness Primary Care Provider: ISIDRA Pérez 61 YOF with medical history of: GERD, Scoliosis, Scleroderma, Laparoscopic fundoplication, Stomach ulcers (on PPI and Carafate). Patient comes to the EMD today referred from her PCP secondary to hypoxia and hypotension. The patient endorses that over the past 5 days she has been having liquid dark black stools. She endorses 5-6 of these yesterday. She then became weak and fatigued that even going to the bathroom she would become exhausted. She felt dizzy and light headed that was associated with warm flushing yesterday and today when she would stand up. This was precluded by 1 week increase in stomach burning as well as burning into her throat that occurred after eating and taking her medications. She has decreased her oral intake secondary to the pain she was having. She d oes not smoke and does not drink alcohol. She denies any use of NSAIDS. She does endorse very heavy use of diet coke. In the [facility] the paitient arrived tachycardic, hypotensive, and hypoxic. She was briefly placed on BiPAP for her RR. She had routine labs performed which revealed a HGB of 8 (no recent for comparison), and BUN of 40, lactate of 2.6. Her ionized calcium is low and her Mag is low as well at 1.4. She is already receiving 1 unit of PRBC- will give 1GM of CA gluconate following this unit of blood. She has already received her Protonix bolus and drip so will continue Protonix infusion. Will keep NPO. Obtain 2 large bore IV. Patient endorses that her fundoplication was performed about 7 years ago and that she follows with Dr. Galaviz (sp?) in [facility]. She does report history of ulcers following her fundoplication and was following up with them every 3 months. Her last EGD she thinks was approx 2 years ago. She reports that she is on Carafate and PPI. [facility] has been consulted by [facility] physician already. COVID test on admission is: NEGATIVE Allergies Allergy/AdvReac Type Severity Reaction Status Date / Time Bactrim Allergy Unknown LIPS Verified 12/29/17 14:31 SWELLING sulfamethoxazole [Bactrim] Allergy Unknown LIPS Verified 04/01/22 10:31 SWELLING trimethoprim [Bactrim] Allergy Unknown LIPS Verified 04/01/22 10:31 SWELLING methotrexate AdvReac Unknown GI UPSET Verified 04/01/22 10:31 Home Medications Medication Instructions Recorded Confirmed Type amlodipine 10 mg tablet 10 mg PO DAILY 03/31/22 03/31/22 History bupropion HCl 200 mg tablet,12 hr 200 mg PO BID 03/31/22 03/31/22 History sustained-release calcium carbonate 600 mg-vitamin 1 tab PO DAILY 03/31/22 03/31/22 History D3 10 mcg (400 unit) tablet (Calcium 600 + D(3)) estradiol 1 mg tablet 1 mg PO DAILY 03/31/22 03/31/22 History gabapentin 100 mg capsule 100 mg PO TID 03/31/22 03/31/22 History hydrochlorothiazide 12.5 mg tablet 12.5 mg PO DAILY 03/31/22 03/31/22 History hydrocodone 10 mg-acetaminophen 1 tab PO .Q4-6HR PRN 03/31/22 03/31/22 History 325 mg tablet hydroxyzine HCl 25 mg tablet 25 mg PO TID PRN 03/31/22 03/31/22 History levothyroxine 50 mcg tablet 50 mcg PO DAILY 03/31/22 03/31/22 History methocarbamol 500 mg tablet 500 mg PO Q8 PRN 03/31/22 03/31/22 History metoprolol succinate 100 mg 100 mg PO DAILY 03/31/22 03/31/22 History tablet,extended release 24 hr mirtazapine 30 mg tablet 30 mg PO HS 03/31/22 03/31/22 History multivitamin 1 tab PO DAILY 03/31/22 03/31/22 History sumatriptan succinate 100 mg tablet 100 mg PO DIRECTED PRN 03/31/22 03/31/22 History sumatriptan succinate 4 mg/0.5 mL 4 mg SUBCUT DIRECTED PRN 03/31/22 03/31/22 History subcutaneous pen injector zaleplon 10 mg capsule 10 mg PO HS PRN 03/31/22 03/31/22 History misoprostol 100 mcg tablet 100 mcg PO BID #60 tab 04/02/22 Rx pantoprazole 40 mg tablet,delayed 40 mg PO BID #60 tab 04/02/22 Rx release sucralfate 100 mg/mL oral 1 g PO QID 30 Days #1200 ml 04/02/22 Rx suspension (Carafate) Past Med/Surg History Medical History (Updated 04/02/22 @ 09:18 by Laura Morfin PA-C) Cervical stenosis of spinal canal Cholecystitis Encounter for pre-operative examination Takotsubo cardiomyopathy Vomiting and diarrhea Surgical History (Updated 04/01/22 @ 10:18 by Mayela Qureshi MD) History of mandibular surgery bilateral TMJ replacement S/P JOVANA-BSO (total abdominal hysterectomy and bilateral salpingo-oophorectomy) Status post laparoscopic Krystyna fundoplication Social History Smoking Status: Never smoker Hx Alcohol Use: No Hx Substance Use: No Beliefs That Will Affect Care: None Current Living Situation: Alone Feels Safe at Home: Yes Assistive Devices: None Review of Systems Review of Systems: REVIEW OF SYSTEMS: Constitutional: No fever, sweats or chills Eyes: No diplopia, no worsening or blurred vision ENT: normal hearing, no trouble swallowing Respiratory: No cough, sputum, dyspnea at rest or on exertion Cardiovascular: (+) fatigue/dizziness/lightheadedness, No chest pain, tightness or palpitations Abdomen: (+) pain, nausea, diarrhea, no vomiting, or constipation Musculoskeletal: (+) back pain (scoliosis), NO joint pain, calf pain, swelling Neurologic: No weakness, numbness/tingling, or balance problems Psychiatric: No anxiety or depression Skin: No rash or itch Physical Exam Physical Exam: PHYSICAL EXAM: General: pale appearing, awake, alert, no apparent distress Head: Normocephalic, atraumatic ENT: Pale conjunctivae and pale gums, PERRLA, EOMI, no pharyngeal exudate, mucous membranes dry Neuro: AAO x 3, speech clear and appropriate, strength intact bilaterally 5/5, sensation intact and equal all extremities and dermatomes, no pronator drift Chest: equal rise and fall of the chest, no accessory muscle use, no heaves or thrills, Clear to auscultation, on room air, Cardiac: Regular rate and rhythm, telemetry reviewed-sinus tachy, skin warm dry, cap refill 3 seconds, peripheral pulses +2 no JVD, no murmur, no edema GI: NABS x 4 quadrants, soft, mild tenderness with deep palpation to right epigastrum, nontender to palpation, no rebound, no guarding or tenderness : Spontaneously voiding, no pain, no CVA tenderness, Extremities: Normal inspection, no peripheral edema or erythema, calfs nontender to palpation Psych: Normal mood and affect Skin: no rash or erythema Results & Data Results & Data ([facility]) Vital Signs (Past 12 Hours) Vital Signs Temp Pulse Pulse Resp BP BP Pulse Ox 03/31/22 15:30 116 H 20 132/88 97 03/31/22 15:15 36.6 C 108 H 20 132/95 100 03/31/22 15:10 97 03/31/22 15:00 36.6 C 107 H 16 108/84 100 03/31/22 14:43 36.5 C 110 H 22 117/97 94 03/31/22 14:30 36.5 C 104 H 19 117/97 97 03/31/22 14:15 109 H 22 106/75 100 03/31/22 14:10 106 H 19 125/81 100 03/31/22 13:49 103 H 20 146/84 H 100 03/31/22 13:40 110 H 24 130/86 100 03/31/22 13:26 122 H 28 H 100 03/31/22 13:25 100 03/31/22 13:11 36.8 C 114 H 24 99/81 L 100 Laboratory Results Abnormal lab results 03/31/22 03/31/22 03/31/22 Range/Units 13:40 13:40 13:40 RBC 2.64 L (4.2-5.4) M/uL Hgb 8.3 L (12.0-16.0) g/dL POC Hgb (12.0-16.0) g/dl Hct 25.4 L (37-47) % POC Hct (37-47) % RDW Std Deviation 47.7 H (36.4-46.3) fL VBG pH (7.36-7.41) VBG pCO2 (38-50) mmHg POC Total CO2 (24-31) mmol/L POC BUN (7-18) mg/dl BUN 40 H (6-23) mg/dl BUN/Creatinine Ratio 39.6 H (10-20) Glucose 117 H (70-99(Fasting)) mg/dl POC Glucose (other) (70-99) mg/dl Lactate 2.6 H* (0.4-2.0) mmol/L POC Ioniz Calcium Yolanda (1.12-1.32) mmol/l Magnesium 1.4 L (1.7-2.4) mg/dl AST 10 L (13-39) U/L Troponin I High Sens 19.2 H (0-14) pg/ml Total Protein 5.7 L (6.0-8.3) gm/dl Albumin 3.2 L (3.4-5.0) gm/dl Crossmatch 03/31/22 03/31/22 03/31/22 Range/Units 13:40 13:40 14:05 RBC (4.2-5.4) M/uL Hgb (12.0-16.0) g/dL POC Hgb 10.2 L (12.0-16.0) g/dl Hct (37-47) % POC Hct 30 L (37-47) % RDW Std Deviation (36.4-46.3) fL VBG pH 7.43 H (7.36-7.41) VBG pCO2 33 L (38-50) mmHg POC Total CO2 21 L (24-31) mmol/L POC BUN 33 H (7-18) mg/dl BUN (6-23) mg/dl BUN/Creatinine Ratio (10-20) Glucose (70-99(Fasting)) mg/dl POC Glucose (other) 119 H (70-99) mg/dl Lactate (0.4-2.0) mmol/L POC Ioniz Calcium Yolanda 1.09 L (1.12-1.32) mmol/l Magnesium (1.7-2.4) mg/dl AST (13-39) U/L Troponin I High Sens (0-14) pg/ml Total Protein (6.0-8.3) gm/dl Albumin (3.4-5.0) gm/dl Crossmatch See Detail Diagnostic Findings Chest CTA 03/31/22 13:18 CT angio chest PE protocol CLINICAL HISTORY: PE, sob, hypoxemia TECHNIQUE: Multidetector row helical CT of the chest was performed with angiographic protocol. Coronal and sagittal reformations were obtained. Coronal and sagittal MIPS were obtained from the axial data set and were submitted for review. Automated dose lowering techniques and/or adjustment according to patient size were utilized for this exam. CT DOSE: 246.68 mGy.cm Comparison: Comparison is made to chest radiograph 03/31/2022 FINDINGS: Lungs and pleura: Atelectasis is seen in the left lung base. Heart and pericardium: Heart size is normal. No pericardial effusion. Vessels: No evidence of pulmonary embolism. Mediastinum and jesusita: Unremarkable. Chest wall and lower neck: A right breast implant is seen. Abdomen: A hiatal hernia is seen. Bones: Degenerative changes in the thoracic spine. Multilevel bony hemangiomas are seen. Anterior cervical fixation hardware is partially visualized. IMPRESSION: No evidence of pulmonary embolism or other acute abnormality such as pneumonia. ACT 112: Negative or not required by law. Electronically signed by: Aamir Escobar M.D. 03/31/2022 2:09 PM Chest X-Ray 03/31/22 13:19 XR chest 1V portable CLINICAL HISTORY: SEPSIS TECHNIQUE: Single frontal radiograph of the chest was obtained. Comparison: Comparison is made to chest radiograph 12/29/2017 FINDINGS: Anterior cervical fixation hardware is seen. Redemonstration of scoliosis. The cardiomediastinal silhouette is normal. The lungs are clear. No evidence of pleural effusion or pneumothorax. IMPRESSION: No acute abnormalities and in particular no evidence of pneumonia. ACT 112: Negative or not required by law. Electronically signed by: Aamir Escobar M.D. 03/31/2022 1:38 PM Medications Administered Home Medications amlodipine 10 mg tablet 10 mg PO DAILY 03/31/22 [History Confirmed 03/31/22] bupropion HCl 200 mg tablet,12 hr sustained-release 200 mg PO BID 03/31/22 [History Confirmed 03/31/22] calcium carbonate 600 mg-vitamin D3 10 mcg (400 unit) tablet (Calcium 600 + D(3)) 1 tab PO DAILY 03/31/22 [History Confirmed 03/31/22] estradiol 1 mg tablet 1 mg PO DAILY 03/31/22 [History Confirmed 03/31/22] gabapentin 100 mg capsule 100 mg PO TID 03/31/22 [History Confirmed 03/31/22] hydrochlorothiazide 12.5 mg tablet 12.5 mg PO DAILY 03/31/22 [History Confirmed 03/31/22] hydrocodone 10 mg-acetaminophen 325 mg tablet 1 tab PO .Q4-6HR PRN 03/31/22 [History Confirmed 03/31/22] hydroxyzine HCl 25 mg tablet 25 mg PO TID PRN 03/31/22 [History Confirmed 03/31/22] levothyroxine 50 mcg tablet 50 mcg PO DAILY 03/31/22 [History Confirmed 03/31/22] lisinopril 40 mg tablet 40 mg PO DAILY 03/31/22 [History Confirmed 03/31/22] methocarbamol 500 mg tablet 500 mg PO Q8 PRN 03/31/22 [History Confirmed 03/31/22] metoprolol succinate 100 mg tablet,extended release 24 hr 100 mg PO DAILY 03/31/22 [History Confirmed 03/31/22] mirtazapine 30 mg tablet 30 mg PO HS 03/31/22 [History Confirmed 03/31/22] multivitamin 1 tab PO DAILY 03/31/22 [History Confirmed 03/31/22] pantoprazole 40 mg tablet,delayed release 40 mg PO BID 03/31/22 [History Confirmed 03/31/22] sucralfate 1 gram tablet (Carafate) 1 g PO ACHS 03/31/22 [History Confirmed 03/31/22] sumatriptan succinate 100 mg tablet 100 mg PO DIRECTED PRN 03/31/22 [History Confirmed 03/31/22] sumatriptan succinate 4 mg/0.5 mL subcutaneous pen injector 4 mg SUBCUT DIRECTED PRN 03/31/22 [History Confirmed 03/31/22] zaleplon 10 mg capsule 10 mg PO HS PRN 03/31/22 [History Confirmed 03/31/22] Active Medications Pantoprazole Sodium 40 mg/ (Dextrose) 100 mls @ 20 mls/hr IV Q5H SAMANTHA Stop: 04/30/22 14:44 Last Admin: 03/31/22 15:32 Dose: 8 mg/hr, 20 mls/hr Documented by: Sodium Chloride (Nss) 250 mls @ 15 mls/hr IV .[id number] PRN PRN Reason: For Transfusion Stop: 04/01/22 00:24 Sodium Chloride (Nss) 250 mls @ 15 mls/hr IV .[id number] PRN PRN Reason: For Transfusion Stop: 04/01/22 00:25 Magnesium Sulfate/Dextrose (Magnesium Sulfate / D5w) 1 gm in 100 mls @ 50 mls/hr IV Q2H SAMANTHA Stop: 03/31/22 21:14 Sodium Chloride (Nss) 250 mls @ 15 mls/hr IV .[id number] PRN PRN Reason: For Transfusion Stop: 04/01/22 01:24 Pantoprazole Sodium 40 mg/ (Dextrose) 100 mls @ 20 mls/hr IV Q5H SAMANTHA Stop: 04/30/22 14:44 Last Admin: 03/31/22 15:32 Dose: 8 mg/hr, 20 mls/hr Documented by: [id number] Discontinued Medications Sodium Chloride (Nss 1000ml) 1,000 mls @ 999 mls/hr IV .Q1H1M SAMANTHA Stop: 03/31/22 14:30 Last Infusion: 03/31/22 14:50 Dose: 0 mls/hr Documented by: [id number] Admin: 03/31/22 13:44 Dose: 999 mls/hr Documented by: [id number] Piperacillin Sod/Tazobactam Sod (Zosyn) 4.5 gm in 120 mls @ 240 mls/hr IV NOW ONE Stop: 03/31/22 13:47 Last Infusion: 03/31/22 14:50 Dose: 0 mls/hr Documented by: [id number] Admin: 03/31/22 14:13 Dose: 240 mls/hr Documented by: [id number] Pantoprazole Sodium (Protonix Bolus/Drip) 0 mls @ 1 mls/hr IV ONE STA Stop: 03/31/22 14:18 Last Infusion: 03/31/22 15:48 Dose: 0 mls/hr Documented by: [id number] Admin: 03/31/22 15:48 Dose: 1 mls/hr Documented by: [id number] Pantoprazole Sodium 80 mg/ (Dextrose) 120 mls @ 400 mls/hr IV NOW ONE Stop: 03/31/22 14:34 Last Infusion: 03/31/22 15:32 Dose: 0 mls/hr Documented by: [id number] Admin: 03/31/22 15:02 Dose: 400 mls/hr Documented by: [id number] Sodium Chloride (Nss 1000ml) 1,000 mls @ 999 mls/hr IV .Q1H1M ONE Stop: 03/31/22 15:24 Last Admin: 03/31/22 14:50 Dose: 999 mls/hr Documented by: [id number] Ioversol (Optiray 320 125ml) 120 ml IV ONCE ONE Stop: 03/31/22 14:02 Last Admin: 03/31/22 14:01 Dose: 120 ml Documented by: [id number] ECG Additional Comments: Sinus tachycardia Otherwise normal ECG When compared with ECG of 14-APR-2016 18:22, No significant change was found Code Status & VTE Plan Code Status CODE: FULL VTE: SCDS, chemoprophylaxis held with active GIB VTE Prophylaxis Plan VTE Prophylaxis will be ordered: Yes Supervising Physician Co-Signing Physician Notes I personally saw and examined the patient. I verified all tello points and agree with ISIDRA Cota with the following exceptions and/or additions: 61 year old female presents with PG Care Time/CCT Total # of Minutes Spent Total Time Spent with Patient: Total time spent is greater than 50% in coordination of care (as documented) at patient's floor/unit and/or counseling patient: Coding Level of Care Code 81002 Initial Inpt Care Lvl 3 Diagnoses UGI bleed K92.2 GERD (gastroesophageal reflux disease) K21.9 Scoliosis M41.9 Scleroderma M34.9 Migraines G43.909 Hypothyroidism E03.9 HTN (hypertension) I10 Anxiety F41.9 Hypothyroidism E03.9 Hypomagnesemia E83.42 Depression F32.A
[2022-03-31] MEDS: MAGNESIUM SULFATE / D5W 1 GM/100 ML BAG IV SCH ×3 (16:09→21:14)
[2022-03-31] MEDS ORDERED: GLUCAGON FOR INJ 1 MG VIAL SQ PRN (18:29)
[2022-03-31] MEDS ORDERED: CARBOHYDRATES FOR HYPOGLYCEMIA PO PRN (18:29)
[2022-03-31] MEDS ORDERED: ACETAMINOPHEN 1,000 MG/100 ML VIAL IV PRN (18:29)
[2022-03-31] MEDS ORDERED: GLUCOSE 10 TABS/TUBE PO PRN (18:29)
[2022-03-31] MEDS ORDERED: GLUCOSE 40% GEL 15 GM TUBE PO PRN (18:29)
[2022-03-31] MEDS ORDERED: LIDOCAINE 5% 1 PATCH TD SCH (18:29)
[2022-03-31] MEDS ORDERED: DEXTROSE 50% 50 ML SYRINGE IV PRN (18:29)
[2022-03-31] MEDS ORDERED: CALCIUM GLUCONATE 10% 1,000 MG in DEXTROSE 5% 50 ML IV ONE (19:30)
[2022-03-31 21:06] LABS: Basophils # (auto) 0.02 K/uL (0-0.2); Basophils % (auto) 0.3 %; Eosinophils # (auto) 0.11 K/uL (0-0.5); Eosinophils % (auto) 1.6 %; Hematocrit (blood only) 29.3 % (37-47); Hemoglobin 9.8 g/dL (12.0-16.0); Immature Granulocytes # (auto) 0.03 K/uL (0.00-0.02); Immature Granulocytes % (auto) 0.4 %; Lymphocytes # (auto) 1.39 K/uL (1.2-3.4); Lymphocytes % (auto) 20.1 %; Mean Corpuscular Hemoglobin 30.7 pg (25-34); Mean Corpuscular Hgb Conc 33.4 g/dL (32-36); Mean Corpuscular Volume 91.8 fL (80-100); Mean Platelet Volume 9.1 fL (7.4-10.4); Monocytes # (auto) 0.26 K/uL (0.11-0.59); Monocytes % (auto) 3.8 %; Neutrophils # (auto) 5.12 K/uL (1.4-6.5); Neutrophils % (auto) 73.8 %; Platelet Count 212 K/uL (130-400); RDW Coefficient of Variation 14.1 % (11.5-14.5); RDW Standard Deviation 46.1 fL (36.4-46.3); Red Blood Count 3.19 M/uL (4.2-5.4); White Blood Count 6.93 K/uL (4.8-10.8)
[2022-03-31] MEDS ORDERED: Nursing to Pharmacy Communication SCH (21:30)
[2022-04-01] MEDS: MoRPHine SULFATE 2 MG/ML CARP IV PRN ×3 (00:31→15:48)
[2022-04-01] MEDS: PANTOprazole 40 MG in DEXTROSE 5% 100 ML IV SCH ×5 (00:32→22:29)
[2022-04-01 02:50] LABS: Basophils # (auto) 0.01 K/uL (0-0.2); Basophils % (auto) 0.2 %; Eosinophils # (auto) 0.15 K/uL (0-0.5); Eosinophils % (auto) 3.6 %; Hematocrit (blood only) 27.9 % (37-47); Hemoglobin 9.1 g/dL (12.0-16.0); Immature Granulocytes # (auto) 0.02 K/uL (0.00-0.02); Immature Granulocytes % (auto) 0.5 %; Lymphocytes # (auto) 1.62 K/uL (1.2-3.4); Lymphocytes % (auto) 38.9 %; Mean Corpuscular Hemoglobin 30.3 pg (25-34); Mean Corpuscular Hgb Conc 32.6 g/dL (32-36); Mean Platelet Volume 9.2 fL (7.4-10.4); Monocytes # (auto) 0.16 K/uL (0.11-0.59); Monocytes % (auto) 3.8 %; Platelet Count 225 K/uL (130-400); RDW Coefficient of Variation 14.8 % (11.5-14.5); RDW Standard Deviation 50.2 fL (36.4-46.3); White Blood Count 4.16 K/uL (4.8-10.8)
[2022-04-01 03:09] LABS: BUN Creatinine Ratio 25.9 (10-20); Calcium 7.5 mg/dl (8.5-10.1); Creatinine Clr Calc Pharmacy 59.6 ml/min; Est GFR (African American) 90.2 ml/min; Est GFR (Non-African American) 77.8 ml/min; Magnesium 2.4 mg/dl (1.7-2.4); Potassium 3.9 mmol/L (3.5-5.1)
--- NOTE | 2022-04-01 09:38 | Gastrointestinal Consultation ---
Date of Consultation April 01, 2022 Assessment & Plan (1) UGI bleed: -Keep NPO and proceed with EGD today -Continue Protonix gtt at present -Continue to monitor H/H -Supportive care per primary team Supervising Physician Co-Signing Physician Notes Agree with NED Neal as above Gen: Awake cooperative, NAD Chest: CTA B/L, -w/r CVS: RRR Abd: Soft, NT, ND, +BS, -HSM Ext: -c/c/e Continue Protonix gtt Continue current therapy and supportive care Proceed with EGD now Further recommendations to follow above noted testing. History of Present Illness Reason for Consultation: Melena Attending Physician: Mayela Qureshi MD History of Present Illness Patient is a 61 yo female with PMH of HTN, hypothyroidism, migraines, scleroderma, scoliosis, GERD & UGI bleed secondary to peptic ulcers in the past (2016). She notes that 2 months ago, she developed epigastric burning. She takes Protonix 40 mg BID but this was not helping. She denies NSAID use. She notes that several days ago, she began noting melena. This progressed and she was having 6 black loose stools daily and eventually she became dizzy. She went to see her PCP on 03/31/22 who referred her to the ED due to hypoxia and hypotension. She is a nonsmoker. She does not drink alcohol. She was initially placed on Bipap in the ED due to her respirations. Her hemoglobin on presentation was 8. She received 1 unit PRBCs and her H/H is presently 9.1/10.2. She has a history of a fundoplication 7 years ago at [facility] by Dr. Sanchez. Following that, in 2016 she underwent an EGD for melena and anemia and was noted to have ulcers. She is presently NPO and on a Protonix drip. Respiration rate is 17 and pulse ox is currently 99% on room air. She is afebrile but tachycardic at 105. BP is stable at 136/87. Lactic acid bumped upon presentation. Allergies Allergy/AdvReac Type Severity Reaction Status Date / Time Bactrim Allergy Unknown LIPS Verified 12/29/17 14:31 SWELLING sulfamethoxazole [Bactrim] Allergy Unknown LIPS Verified 04/01/22 10:31 SWELLING trimethoprim [Bactrim] Allergy Unknown LIPS Verified 04/01/22 10:31 SWELLING methotrexate AdvReac Unknown GI UPSET Verified 04/01/22 10:31 Home Medications Medication Instructions Recorded Confirmed Type amlodipine 10 mg tablet 10 mg PO DAILY 03/31/22 03/31/22 History bupropion HCl 200 mg tablet,12 hr 200 mg PO BID 03/31/22 03/31/22 History sustained-release calcium carbonate 600 mg-vitamin 1 tab PO DAILY 03/31/22 03/31/22 History D3 10 mcg (400 unit) tablet (Calcium 600 + D(3)) estradiol 1 mg tablet 1 mg PO DAILY 03/31/22 03/31/22 History gabapentin 100 mg capsule 100 mg PO TID 03/31/22 03/31/22 History hydrochlorothiazide 12.5 mg tablet 12.5 mg PO DAILY 03/31/22 03/31/22 History hydrocodone 10 mg-acetaminophen 1 tab PO .Q4-6HR PRN 03/31/22 03/31/22 History 325 mg tablet hydroxyzine HCl 25 mg tablet 25 mg PO TID PRN 03/31/22 03/31/22 History levothyroxine 50 mcg tablet 50 mcg PO DAILY 03/31/22 03/31/22 History lisinopril 40 mg tablet 40 mg PO DAILY 03/31/22 03/31/22 History methocarbamol 500 mg tablet 500 mg PO Q8 PRN 03/31/22 03/31/22 History metoprolol succinate 100 mg 100 mg PO DAILY 03/31/22 03/31/22 History tablet,extended release 24 hr mirtazapine 30 mg tablet 30 mg PO HS 03/31/22 03/31/22 History multivitamin 1 tab PO DAILY 03/31/22 03/31/22 History pantoprazole 40 mg tablet,delayed 40 mg PO BID 03/31/22 03/31/22 History release sucralfate 1 gram tablet (Carafate) 1 g PO ACHS 03/31/22 03/31/22 History sumatriptan succinate 100 mg tablet 100 mg PO DIRECTED PRN 03/31/22 03/31/22 History sumatriptan succinate 4 mg/0.5 mL 4 mg SUBCUT DIRECTED PRN 03/31/22 03/31/22 History subcutaneous pen injector zaleplon 10 mg capsule 10 mg PO HS PRN 03/31/22 03/31/22 History Patient History Medical History (Updated 04/01/22 @ 10:38 by Mayela Qureshi MD) Cervical stenosis of spinal canal Cholecystitis Encounter for pre-operative examination Takotsubo cardiomyopathy Vomiting and diarrhea Surgical History (Updated 04/01/22 @ 10:18 by Mayela Qureshi MD) History of mandibular surgery bilateral TMJ replacement S/P JOVANA-BSO (total abdominal hysterectomy and bilateral salpingo-oophorectomy) Status post laparoscopic Krystyna fundoplication Social History Smoking Status: Never smoker Hx Alcohol Use: No Hx Substance Use: No Beliefs That Will Affect Care: None Current Living Situation: Alone Other Information That Helps Us Care for You: No Feels Safe at Home: Yes Safety Concerns: Feels Safe At This Time Assistive Devices: None Review of Systems Constitutional: + fatigue; no fever, no chills and no weight loss Respiratory: no cough and no dyspnea Cardiovascular: no chest pain Gastrointestinal: no abdominal pain Psychiatric: no problem reported Physical Exam Constitutional: well developed Respiratory: normal respiratory effort Cardiovascular: Rate/Rhythm: + tachycardic Gastrointestinal (Abdomen): normal bowel sounds, soft, nontender, no hepato splenomegaly Musculoskeletal: Head/Neck/Chest: normocephalic Psychiatric: Orientation: alert and oriented x 3 Results & Data ([facility]) Vital Signs (Past 12 Hours) Vital Signs Temp Pulse Pulse Resp BP BP Pulse Ox 04/01/22 07:57 36.5 C 105 H 17 136/87 99 04/01/22 03:21 36.4 C L 102 H 18 130/85 98 04/01/22 02:43 110 H 03/31/22 23:44 36.5 C 107 H 18 127/82 97 PG Care Time/CCT Total # of Minutes Spent Total Time Spent with Patient: Total time spent is greater than 50% in coordination of care (as documented) at patient's floor/unit and/or counseling patient: Coding Level of Care Code 95440 Inpt Consult Level 4 Diagnoses UGI bleed K92.2
--- NOTE | 2022-04-01 09:43 | Electrocardiogram Report ---
Test Reason : Blood Pressure : / mmHG Vent. Rate : 114 BPM Atrial Rate : 114 BPM P-R Int : 146 ms QRS Dur : 076 ms QT Int : 330 ms P-R-T Axes : 069 065 054 degrees QTc Int : 454 ms Sinus tachycardia Otherwise normal ECG When compared with ECG of 14-APR-2016 18:22, No significant change was found Confirmed by Florentino Mitchell ([id number]) on 04/01/2022 9:42:50 AM Referred By: ED Confirmed By:Florentino Mitchell
--- NOTE | 2022-04-01 10:10 | Anesthesiology Consultation ---
Date of Service April 01, 2022 Assessment & Plan (1) Encounter for pre-operative examination: Chart Review Chart Review: Acceptable Risk for Surgery, Patient NOT seen in Pre Admission Testing and dividend deposit entry clerk initiated Consults Requested none History Surgery Operation Date: 04/01/22 17:50 Proposed Procedures p Esophagogastroduodenoscopy Dr Edgar - Anastacio Estrella Case, DO Height/Weight Height: 5 ft 3 in Weight: 56.2 kg Allergies Allergy/AdvReac Type Severity Reaction Status Date / Time Bactrim Allergy Unknown LIPS Verified 12/29/17 14:31 SWELLING sulfamethoxazole [Bactrim] Allergy Unknown LIPS Verified 03/31/22 15:23 SWELLING trimethoprim [Bactrim] Allergy Unknown LIPS Verified 03/31/22 15:23 SWELLING methotrexate AdvReac Unknown GI UPSET Verified 03/31/22 15:23 Medications Home Medications Medication Instructions Recorded Confirmed Last Taken amlodipine 10 mg tablet 10 mg PO DAILY 03/31/22 03/31/22 Unknown bupropion HCl 200 mg tablet,12 hr 200 mg PO BID 03/31/22 03/31/22 Unknown sustained-release calcium carbonate 600 mg-vitamin 1 tab PO DAILY 03/31/22 03/31/22 Unknown D3 10 mcg (400 unit) tablet (Calcium 600 + D(3)) estradiol 1 mg tablet 1 mg PO DAILY 03/31/22 03/31/22 Unknown gabapentin 100 mg capsule 100 mg PO TID 03/31/22 03/31/22 Unknown hydrochlorothiazide 12.5 mg tablet 12.5 mg PO DAILY 03/31/22 03/31/22 Unknown hydrocodone 10 mg-acetaminophen 1 tab PO .Q4-6HR PRN 03/31/22 03/31/22 Unknown 325 mg tablet hydroxyzine HCl 25 mg tablet 25 mg PO TID PRN 03/31/22 03/31/22 Unknown levothyroxine 50 mcg tablet 50 mcg PO DAILY 03/31/22 03/31/22 Unknown lisinopril 40 mg tablet 40 mg PO DAILY 03/31/22 03/31/22 Unknown methocarbamol 500 mg tablet 500 mg PO Q8 PRN 03/31/22 03/31/22 Unknown metoprolol succinate 100 mg 100 mg PO DAILY 03/31/22 03/31/22 Unknown tablet,extended release 24 hr mirtazapine 30 mg tablet 30 mg PO HS 03/31/22 03/31/22 Unknown multivitamin 1 tab PO DAILY 03/31/22 03/31/22 Unknown pantoprazole 40 mg tablet,delayed 40 mg PO BID 03/31/22 03/31/22 Unknown release sucralfate 1 gram tablet (Carafate) 1 g PO ACHS 03/31/22 03/31/22 Unknown sumatriptan succinate 100 mg tablet 100 mg PO DIRECTED PRN 03/31/22 03/31/22 Unknown sumatriptan succinate 4 mg/0.5 mL 4 mg SUBCUT DIRECTED PRN 03/31/22 03/31/22 Unknown subcutaneous pen injector zaleplon 10 mg capsule 10 mg PO HS PRN 03/31/22 03/31/22 Unknown Active Medications Generic Name Dose Route Start Last Admin Trade Name Freq PRN Reason Stop Dose Admin Pantoprazole Sodium 40 mg/ 100 mls @ 20 mls/hr 03/31/22 14:45 04/01/22 05:29 Dextrose IV 04/30/22 14:44 8 mg/hr Q5H SAMANTHA 20 mls/hr Administration 8 MG/HR Miscellaneous 1 ea 04/01/22 09:00 04/01/22 09:57 Remove Lidoderm Patch N/A 05/01/22 08:59 Not Given QAM SAMANTHA Morphine Sulfate 2 mg 03/31/22 18:29 04/01/22 08:35 Morphine Sulfate 2 Mg/Ml Carp IV 04/14/22 18:28 2 mg Q6 PRN Administration severe back Pain Past Medical History Medical History Cervical stenosis of spinal canal Cholecystitis Encounter for pre-operative examination Vomiting and diarrhea Past Surgical History Surgical History S/P JOVANA-BSO (total abdominal hysterectomy and bilateral salpingo-oophorectomy) Status post laparoscopic Krystyna fundoplication Social History Smoking Status: Never smoker Hx Alcohol Use: No Hx Substance Use: No Physical Exam Vital Signs Last Vital Signs Temp 36.5 C 04/01/22 07:57 Pulse 105 H 04/01/22 07:57 Resp 17 04/01/22 07:57 BP 136/87 04/01/22 07:57 Pulse Ox 99 04/01/22 07:57 Testing Laboratory Results 04/01/22 02:23 04/01/22 02:23 PT 10.4 Seconds (9.0-12.0) 03/31/22 13:40 INR 1.0 (0.9-1.1) 03/31/22 13:40 APTT 23.4 Seconds (21.0-31.0) 03/31/22 13:40 Blood Type O Positive 03/31/22 14:05 Antibody Screen NEGATIVE 03/31/22 14:05 Electrocardiogram Date: 03/31/22 Blood Pressure : / mmHG Vent. Rate : 114 BPM Atrial Rate : 114 BPM P-R Int : 146 ms QRS Dur : 076 ms QT Int : 330 ms P-R-T Axes : 069 065 054 degrees QTc Int : 454 ms Sinus tachycardia Otherwise normal ECG When compared with ECG of 14-APR-2016 18:22, No significant change was found Confirmed by Florentino Mitchell ([id number]) on 04/01/2022 9:42:50 Chest X-Ray Date: 03/31/22 CLINICAL HISTORY: SEPSIS TECHNIQUE: Single frontal radiograph of the chest was obtained. Comparison: Comparison is made to chest radiograph 12/29/2017 FINDINGS: Anterior cervical fixation hardware is seen. Redemonstration of scoliosis. The cardiomediastinal silhouette is normal. The lungs are clear. No evidence of pleural effusion or pneumothorax. IMPRESSION: No acute abnormalities and in particular no evidence of pneumonia. Other Testing 03/31/22 CT angio chest PE protocol CLINICAL HISTORY: PE, sob, hypoxemia TECHNIQUE: Multidetector row helical CT of the chest was performed with angiographic protocol. Coronal and sagittal reformations were obtained. Coronal and sagittal MIPS were obtained from the axial data set and were submitted for review. Automated dose lowering techniques and/or adjustment according to patient size were utilized for this exam. CT DOSE: 246.68 mGy.cm Comparison: Comparison is made to chest radiograph 03/31/2022 FINDINGS: Lungs and pleura: Atelectasis is seen in the left lung base. Heart and pericardium: Heart size is normal. No pericardial effusion. Vessels: No evidence of pulmonary embolism. Mediastinum and jesusita: Unremarkable. Chest wall and lower neck: A right breast implant is seen. Abdomen: A hiatal hernia is seen. Bones: Degenerative changes in the thoracic spine. Multilevel bony hemangiomas are seen. Anterior cervical fixation hardware is partially visualized. IMPRESSION: No evidence of pulmonary embolism or other acute abnormality such as pneumonia.
--- NOTE | 2022-04-01 10:21 | Hospitalist Progress Note ---
Date of Service April 01, 2022 Assessment & Plan (1) UGI bleed: Plan: GI bleed likely upper with epigastric burning, dark black stools, increase in BUN - Hx of fundoplication with previous ulcerations on current dual therapy of BID PPI and Carafate - she is not on any anti-platelet medications- Platelet count normal - HGB 8.3--- (13.1 in 2020) on admission and now up to 9.1 after 1 unit PRBCs overnight - keep NPO and GI with plans for EGD today - continue Protonix infusion and holding home po PPI -consider misoprostol perhaps given ongoing recurrent ulcers? Will d/w GI - Transfuse PRBC as needed but no further symptoms at this time and HD stable - Maintain 2 Large bore IV at all times - GI consulted- appreciate assistance (2) Acute blood loss anemia: Plan: Acute blood loss anemia as above (3) Elevated troponin: Plan: trop 19 on admission, ECG ST, no ischemic changes, no chest pain but with SOB now resolved with transfusion -trend trop--> now down to 13 no events on tele does have a h/o Takotsubo's which is now resolved with normal EF as per pt (4) Migraines: Plan: 1 a month or less reported has triptan available -use prn getting a headache now but wants to hold off on triptan until after EGD (5) GERD (gastroesophageal reflux disease): Plan: As above with fundoplication holding home meds, giving PPI gtt (6) Hypomagnesemia: Plan: Mag 1.4 secondary to stool loss and no oral food intake on admission - replete with 3 GM Mag-now normal (7) Scoliosis: Plan: Chronic with chronic back pain - continue Tylenol for pain - Lidoderm patch added - Is on home oral hydrocodone- PRN narcotic IV while NPO (8) Scleroderma: Plan: No acute needs noted at this time no known Pulm HTN or Pulm fibrosis she knows of (9) Hypothyroidism: Plan: Continue synthroid TSH checked and normal here at 1.09 (10) HTN (hypertension): Plan: holding home BB, Amlodipine, lisinopril for now given blood loss BPs now stable/normal - if needed can add PRN IV (11) Anxiety: Plan: NPO -holding home hydroxyzine, bupropion- if needed can add PRN IV dose of Ativan (12) Depression: Plan: Hold mirtazapine and hydroxyzine while NPO Plan: Dispo-continued stay Admission and Anticipated Discharge Date Admission Date: March 31, 2022 Subjective No melena overnight or this AM. Has her chronic mid back pain from scoliosis but no CP, abd pain, no nausea. Is getting one of her usual migraines, currently severity is a 4/10 but is worried it will become severe. Does not want an Imitrex right now though as she worries it will worsen her bleeding ulcer. No SOB, no lightheadedness. Tele with NSR,ST rates 100s Review of Systems Review of Systems: All systems reviewed & are unremarkable except as noted in HPI & below Physical Exam Constitutional: WD/WN, vitals as above Eyes: + anicteric sclerae ENMT: external ear and nose normal, oropharynx normal Neck: trachea midline, no thyromegaly Respiratory: normal respiratory effort, lungs clear to auscultation Cardiovascular: RRR, no murmur, no edema Chest (Breasts): Chest: normal inspection of chest Gastrointestinal (Abdomen): normal bowel sounds, soft, nontender, no hepatosplenomegaly Musculoskeletal: Spine: + thoracic spine abnormal to inspection (scoliosis with rotation present) Extremities: extremities normal to inspection; no cyanosis and no clubbing Skin: no rashes, warm and dry Neurologic: moves all extremities and awake; no focal motor deficits Psychiatric: A+Ox3, euthymic affect Lymphatic: no lymphedema Results & Data Results & Data ([facility]) Vital Signs (Past 12 Hours) Vital Signs Temp Pulse Pulse Resp BP BP Pulse Ox 04/01/22 07:57 36.5 C 105 H 17 136/87 99 04/01/22 03:21 36.4 C L 102 H 18 130/85 98 04/01/22 02:43 110 H 03/31/22 23:44 36.5 C 107 H 18 127/82 97 Laboratory Results 04/01/22 04/01/22 04/01/22 Range/Units 02:23 02:23 02:23 WBC 4.16 L (4.8-10.8) K/uL RBC 3.00 L (4.2-5.4) M/uL Hgb 9.1 L (12.0-16.0) g/dL POC Hgb (12.0-16.0) g/dl Hct 27.9 L (37-47) % POC Hct (37-47) % MCV 93.0 (80-100) fL MCH 30.3 (25-34) pg MCHC 32.6 (32-36) g/dL RDW Std Deviation 50.2 H (36.4-46.3) fL RDW Coeff of Lissa 14.8 H (11.5-14.5) % Plt Count 225 (130-400) K/uL MPV 9.2 (7.4-10.4) fL Immature Gran % (Auto) 0.5 % Neut % (Auto) 53.0 % Lymph % (Auto) 38.9 % [place] % (Auto) 3.8 % Eos % (Auto) 3.6 % Baso % (Auto) 0.2 % Neut # (Auto) 2.20 (1.4-6.5) K/uL Lymph # (Auto) 1.62 (1.2-3.4) K/uL [place] # (Auto) 0.16 (0.11-0.59) K/uL Eos # (Auto) 0.15 (0-0.5) K/uL Baso # (Auto) 0.01 (0-0.2) K/uL Immature Gran # (Auto) 0.02 (0.00-0.02) K/uL PT (9.0-12.0) Seconds INR (0.9-1.1) APTT (21.0-31.0) Seconds PTT Ratio VBG pH (7.36-7.41) VBG pCO2 (38-50) mmHg VBG pO2 mmHg VBG HCO3 mmol/L VBG O2 Saturation % VBG Base Excess mEq/L POC Sodium (135-144) mmol/L Sodium 137 (136-145) mmol/L POC Potassium (3.3-5.0) mmol/L Potassium 3.9 (3.5-5.1) mmol/L POC Chloride (101-112) mmol/L Chloride 110 H (98-107) mmol/L Carbon Dioxide 21 (21-32) mmol/L POC Total CO2 (24-31) mmol/L Anion Gap 6 (3-11) POC Anion Gap (16-25) mmol/L POC BUN (7-18) mg/dl BUN 21 (6-23) mg/dl Creatinine 0.81 (0.6-1.2) mg/dl POC Creatinine (0.6-1.3) mg/dl Est Cr Clr Drug Dosing 59.6 Est GFR ( Amer) 90.2 ml/min Est GFR (Non-Af Amer) 77.8 ml/min BUN/Creatinine Ratio 25.9 H (10-20) Glucose 88 (70-99(Fasting)) mg/dl POC Glucose (other) (70-99) mg/dl Lactate (0.4-2.0) mmol/L Calcium 7.5 L (8.5-10.1) mg/dl POC Ioniz Calcium Yolanda (1.12-1.32) mmol/l Magnesium 2.4 (1.7-2.4) mg/dl Total Bilirubin (0.2-1.0) mg/dl AST (13-39) U/L ALT (7-52) U/L Alkaline Phosphatase (34-104) U/L Troponin I High Sens 13.0 D (0-14) pg/ml Total Protein (6.0-8.3) gm/dl Albumin (3.4-5.0) gm/dl Globulin (2.5-4.0) gm/dl Albumin/Globulin Ratio (0.9-2) Procalcitonin (0-0.5) ng/ml TSH (0.300-4.500) uIu/ml SARS-CoV-2, RNA, NAAT (NEGATIVE) Blood Type Antibody Screen Crossmatch 04/01/22 03/31/22 03/31/22 Range/Units 00:00 20:53 16:01 WBC 6.93 (4.8-10.8) K/uL RBC 3.19 L (4.2-5.4) M/uL Hgb 9.8 L (12.0-16.0) g/dL POC Hgb (12.0-16.0) g/dl Hct 29.3 L (37-47) % POC Hct (37-47) % MCV 91.8 (80-100) fL MCH 30.7 (25-34) pg MCHC 33.4 (32-36) g/dL RDW Std Deviation 46.1 (36.4-46.3) fL RDW Coeff of Lissa 14.1 (11.5-14.5) % Plt Count 212 (130-400) K/uL MPV 9.1 (7.4-10.4) fL Immature Gran % (Auto) 0.4 % Neut % (Auto) 73.8 % Lymph % (Auto) 20.1 % [place] % (Auto) 3.8 % Eos % (Auto) 1.6 % Baso % (Auto) 0.3 % Neut # (Auto) 5.12 (1.4-6.5) K/uL Lymph # (Auto) 1.39 (1.2-3.4) K/uL [place] # (Auto) 0.26 (0.11-0.59) K/uL Eos # (Auto) 0.11 (0-0.5) K/uL Baso # (Auto) 0.02 (0-0.2) K/uL Immature Gran # (Auto) 0.03 H (0.00-0.02) K/uL PT (9.0-12.0) Seconds INR (0.9-1.1) APTT (21.0-31.0) Seconds PTT Ratio VBG pH (7.36-7.41) VBG pCO2 (38-50) mmHg VBG pO2 mmHg VBG HCO3 mmol/L VBG O2 Saturation % VBG Base Excess mEq/L POC Sodium (135-144) mmol/L Sodium (136-145) mmol/L POC Potassium (3.3-5.0) mmol/L Potassium (3.5-5.1) mmol/L POC Chloride (101-112) mmol/L Chloride (98-107) mmol/L Carbon Dioxide (21-32) mmol/L POC Total CO2 (24-31) mmol/L Anion Gap (3-11) POC Anion Gap (16-25) mmol/L POC BUN (7-18) mg/dl BUN (6-23) mg/dl Creatinine (0.6-1.2) mg/dl POC Creatinine (0.6-1.3) mg/dl Est Cr Clr Drug Dosing Est GFR ( Amer) ml/min Est GFR (Non-Af Amer) ml/min BUN/Creatinine Ratio (10-20) Glucose (70-99(Fasting)) mg/dl POC Glucose (other) (70-99) mg/dl Lactate 2.2 H* (0.4-2.0) mmol/L Calcium (8.5-10.1) mg/dl POC Ioniz Calcium Yolanda (1.12-1.32) mmol/l Magnesium (1.7-2.4) mg/dl Total Bilirubin (0.2-1.0) mg/dl AST (13-39) U/L ALT (7-52) U/L Alkaline Phosphatase (34-104) U/L Troponin I High Sens (0-14) pg/ml Total Protein (6.0-8.3) gm/dl Albumin (3.4-5.0) gm/dl Globulin (2.5-4.0) gm/dl Albumin/Globulin Ratio (0.9-2) Procalcitonin (0-0.5) ng/ml TSH 1.096 (0.300-4.500) uIu/ml SARS-CoV-2, RNA, NAAT (NEGATIVE) Blood Type Antibody Screen Crossmatch 03/31/22 03/31/22 03/31/22 Range/Units 14:05 13:40 13:40 WBC (4.8-10.8) K/uL RBC (4.2-5.4) M/uL Hgb (12.0-16.0) g/dL POC Hgb 10.2 L (12.0-16.0) g/dl Hct (37-47) % POC Hct 30 L (37-47) % MCV (80-100) fL MCH (25-34) pg MCHC (32-36) g/dL RDW Std Deviation (36.4-46.3) fL RDW Coeff of Lissa (11.5-14.5) % Plt Count (130-400) K/uL MPV (7.4-10.4) fL Immature Gran % (Auto) % Neut % (Auto) % Lymph % (Auto) % [place] % (Auto) % Eos % (Auto) % Baso % (Auto) % Neut # (Auto) (1.4-6.5) K/uL Lymph # (Auto) (1.2-3.4) K/uL [place] # (Auto) (0.11-0.59) K/uL Eos # (Auto) (0-0.5) K/uL Baso # (Auto) (0-0.2) K/uL Immature Gran # (Auto) (0.00-0.02) K/uL PT (9.0-12.0) Seconds INR (0.9-1.1) APTT (21.0-31.0) Seconds PTT Ratio VBG pH 7.43 H (7.36-7.41) VBG pCO2 33 L (38-50) mmHg VBG pO2 20 mmHg VBG HCO3 22 mmol/L VBG O2 Saturation < 60.0 % VBG Base Excess -1.7 mEq/L POC Sodium 137 (135-144) mmol/L Sodium (136-145) mmol/L POC Potassium 4.1 (3.3-5.0) mmol/L Potassium (3.5-5.1) mmol/L POC Chloride 106 (101-112) mmol/L Chloride (98-107) mmol/L Carbon Dioxide (21-32) mmol/L POC Total CO2 21 L (24-31) mmol/L Anion Gap (3-11) POC Anion Gap 16.0 (16-25) mmol/L POC BUN 33 H (7-18) mg/dl BUN (6-23) mg/dl Creatinine (0.6-1.2) mg/dl POC Creatinine 0.9 (0.6-1.3) mg/dl Est Cr Clr Drug Dosing Est GFR ( Amer) ml/min Est GFR (Non-Af Amer) ml/min BUN/Creatinine Ratio (10-20) Glucose (70-99(Fasting)) mg/dl POC Glucose (other) 119 H (70-99) mg/dl Lactate (0.4-2.0) mmol/L Calcium (8.5-10.1) mg/dl POC Ioniz Calcium Yolanda 1.09 L (1.12-1.32) mmol/l Magnesium (1.7-2.4) mg/dl Total Bilirubin (0.2-1.0) mg/dl AST (13-39) U/L ALT (7-52) U/L Alkaline Phosphatase (34-104) U/L Troponin I High Sens (0-14) pg/ml Total Protein (6.0-8.3) gm/dl Albumin (3.4-5.0) gm/dl Globulin (2.5-4.0) gm/dl Albumin/Globulin Ratio (0.9-2) Procalcitonin (0-0.5) ng/ml TSH (0.300-4.500) uIu/ml SARS-CoV-2, RNA, NAAT (NEGATIVE) Blood Type O Positive Antibody Screen NEGATIVE Crossmatch See Detail 03/31/22 03/31/22 03/31/22 Range/Units 13:40 13:40 13:40 WBC (4.8-10.8) K/uL RBC (4.2-5.4) M/uL Hgb (12.0-16.0) g/dL POC Hgb (12.0-16.0) g/dl Hct (37-47) % POC Hct (37-47) % MCV (80-100) fL MCH (25-34) pg MCHC (32-36) g/dL RDW Std Deviation (36.4-46.3) fL RDW Coeff of Lissa (11.5-14.5) % Plt Count (130-400) K/uL MPV (7.4-10.4) fL Immature Gran % (Auto) % Neut % (Auto) % Lymph % (Auto) % [place] % (Auto) % Eos % (Auto) % Baso % (Auto) % Neut # (Auto) (1.4-6.5) K/uL Lymph # (Auto) (1.2-3.4) K/uL [place] # (Auto) (0.11-0.59) K/uL Eos # (Auto) (0-0.5) K/uL Baso # (Auto) (0-0.2) K/uL Immature Gran # (Auto) (0.00-0.02) K/uL PT 10.4 (9.0-12.0) Seconds INR 1.0 (0.9-1.1) APTT 23.4 (21.0-31.0) Seconds PTT Ratio 0.9 VBG pH (7.36-7.41) VBG pCO2 (38-50) mmHg VBG pO2 mmHg VBG HCO3 mmol/L VBG O2 Saturation % VBG Base Excess mEq/L POC Sodium (135-144) mmol/L Sodium 137 (136-145) mmol/L POC Potassium (3.3-5.0) mmol/L Potassium 4.3 (3.5-5.1) mmol/L POC Chloride (101-112) mmol/L Chloride 106 (98-107) mmol/L Carbon Dioxide 21 (21-32) mmol/L POC Total CO2 (24-31) mmol/L Anion Gap 10 (3-11) POC Anion Gap (16-25) mmol/L POC BUN (7-18) mg/dl BUN 40 H (6-23) mg/dl Creatinine 1.01 (0.6-1.2) mg/dl POC Creatinine (0.6-1.3) mg/dl Est Cr Clr Drug Dosing Not Reportable Est GFR ( Amer) 69.1 ml/min Est GFR (Non-Af Amer) 59.6 ml/min BUN/Creatinine Ratio 39.6 H (10-20) Glucose 117 H (70-99(Fasting)) mg/dl POC Glucose (other) (70-99) mg/dl Lactate 2.6 H* (0.4-2.0) mmol/L Calcium 8.6 (8.5-10.1) mg/dl POC Ioniz Calcium Yolanda (1.12-1.32) mmol/l Magnesium 1.4 L (1.7-2.4) mg/dl Total Bilirubin 0.3 (0.2-1.0) mg/dl AST 10 L (13-39) U/L ALT 8 (7-52) U/L Alkaline Phosphatase 47 (34-104) U/L Troponin I High Sens 19.2 H (0-14) pg/ml Total Protein 5.7 L (6.0-8.3) gm/dl Albumin 3.2 L (3.4-5.0) gm/dl Globulin 2.5 (2.5-4.0) gm/dl Albumin/Globulin Ratio 1.3 (0.9-2) Procalcitonin (0-0.5) ng/ml TSH (0.300-4.500) uIu/ml SARS-CoV-2, RNA, NAAT (NEGATIVE) Blood Type Antibody Screen Crossmatch 03/31/22 03/31/22 03/31/22 Range/Units 13:40 13:40 13:28 WBC 5.51 (4.8-10.8) K/uL RBC 2.64 L (4.2-5.4) M/uL Hgb 8.3 L (12.0-16.0) g/dL POC Hgb (12.0-16.0) g/dl Hct 25.4 L (37-47) % POC Hct (37-47) % MCV 96.2 (80-100) fL MCH 31.4 (25-34) pg MCHC 32.7 (32-36) g/dL RDW Std Deviation 47.7 H (36.4-46.3) fL RDW Coeff of Lissa 13.7 (11.5-14.5) % Plt Count 326 (130-400) K/uL MPV 9.3 (7.4-10.4) fL Immature Gran % (Auto) 0.2 % Neut % (Auto) 71.1 % Lymph % (Auto) 24.3 % [place] % (Auto) 3.8 % Eos % (Auto) 0.4 % Baso % (Auto) 0.2 % Neut # (Auto) 3.92 (1.4-6.5) K/uL Lymph # (Auto) 1.34 (1.2-3.4) K/uL [place] # (Auto) 0.21 (0.11-0.59) K/uL Eos # (Auto) 0.02 (0-0.5) K/uL Baso # (Auto) 0.01 (0-0.2) K/uL Immature Gran # (Auto) 0.01 (0.00-0.02) K/uL PT (9.0-12.0) Seconds INR (0.9-1.1) APTT (21.0-31.0) Seconds PTT Ratio VBG pH (7.36-7.41) VBG pCO2 (38-50) mmHg VBG pO2 mmHg VBG HCO3 mmol/L VBG O2 Saturation % VBG Base Excess mEq/L POC Sodium (135-144) mmol/L Sodium (136-145) mmol/L POC Potassium (3.3-5.0) mmol/L Potassium (3.5-5.1) mmol/L POC Chloride (101-112) mmol/L Chloride (98-107) mmol/L Carbon Dioxide (21-32) mmol/L POC Total CO2 (24-31) mmol/L Anion Gap (3-11) POC Anion Gap (16-25) mmol/L POC BUN (7-18) mg/dl BUN (6-23) mg/dl Creatinine (0.6-1.2) mg/dl POC Creatinine (0.6-1.3) mg/dl Est Cr Clr Drug Dosing Est GFR ( Amer) ml/min Est GFR (Non-Af Amer) ml/min BUN/Creatinine Ratio (10-20) Glucose (70-99(Fasting)) mg/dl POC Glucose (other) (70-99) mg/dl Lactate (0.4-2.0) mmol/L Calcium (8.5-10.1) mg/dl POC Ioniz Calcium Yolanda (1.12-1.32) mmol/l Magnesium (1.7-2.4) mg/dl Total Bilirubin (0.2-1.0) mg/dl AST (13-39) U/L ALT (7-52) U/L Alkaline Phosphatase (34-104) U/L Troponin I High Sens (0-14) pg/ml Total Protein (6.0-8.3) gm/dl Albumin (3.4-5.0) gm/dl Globulin (2.5-4.0) gm/dl Albumin/Globulin Ratio (0.9-2) Procalcitonin < 0.05 (0-0.5) ng/ml TSH (0.300-4.500) uIu/ml SARS-CoV-2, RNA, NAAT NEGATIVE (NEGATIVE) Blood Type Antibody Screen Crossmatch PG Care Time/CCT Total # of Minutes Spent Total Time Spent with Patient: Total time spent is greater than 50% in coordination of care (as documented) at patient's floor/unit and/or counseling patient: Coding Level of Care Code 47675 Subseq Hosp Care Lvl 3 Diagnoses UGI bleed K92.2 GERD (gastroesophageal reflux disease) K21.9 Hypomagnesemia E83.42 Scoliosis M41.9 Scleroderma M34.9 Migraines G43.909 Hypothyroidism E03.9 HTN (hypertension) I10 Anxiety F41.9 Depression F32.A Acute blood loss anemia D62 Elevated troponin R77.8
[2022-04-01] MEDS ORDERED: LIDOCAINE 2% 2 ML VIAL/AMP(20MG/ML) INFIL ONE (10:33)
[2022-04-01] MEDS ORDERED: PROPOFOL IV EMULSION 10 MG/ML 20 ML VIAL IV ONE (10:33)
--- NOTE | 2022-04-01 11:23 | GI REPORT ---
Patient Name: Mary Ann Dawkins Procedure Date: 04/01/2022 10:50 AM Date of : 1960 Admit Type: Inpatient Age: 61 Gender: Female Attending MD: Anastacio Edgar DO Procedure: Upper GI endoscopy Providers: Anastacio Edgar DO Referring MD: Mayela Qureshi Md Indications: Acute post hemorrhagic anemia, Melena Medicines: Monitored Anesthesia Care Complications: No immediate complications. Estimated Blood Loss: Estimated blood loss: none. Procedure: Pre-Anesthesia Assessment: - Prior to the procedure, a History and Physical was performed, and patient medications and allergies were reviewed. The patient's tolerance of previous anesthesia was also reviewed. The risks and benefits of the procedure and the sedation options and risks were discussed with the patient. All questions were answered, and informed consent was obtained. Prior Anticoagulants: The patient has taken no previous anticoagulant or antiplatelet agents. ASA Grade Assessment: III - A patient with severe systemic disease. After reviewing the risks and benefits, the patient was deemed in satisfactory condition to undergo the procedure. After obtaining informed consent, the endoscope was passed under direct vision. Throughout the procedure, the patient's blood pressure, pulse, and oxygen saturations were monitored continuously. The Endoscope was introduced through the mouth, and advanced to the second part of duodenum. The upper GI endoscopy was accomplished without difficulty. The patient tolerated the procedure well. Findings: Mildly severe esophagitis with no bleeding was found. Evidence of a Krystyna fundoplication was found in the gastric fundus. The wrap appeared tight. This was traversed. A TTS dilator was passed through the scope. Dilation with a 12-13.5-15 mm balloon dilator was performed to 15 mm. The dilation site was examined and showed mild improvement in luminal narrowing. Six non-bleeding cratered gastric ulcers with no stigmata of bleeding were found in the gastric antrum. The largest lesion was 8 mm in largest dimension. Biopsies were taken with a cold forceps for histology. The examined duodenum was normal. Impression: - Mildly severe esophagitis. - A Krystyna fundoplication was found. The wrap appears tight. Dilated. - Non-bleeding gastric ulcers with no stigmata of bleeding. Biopsied. - Normal examined duodenum. Recommendation: - [facility] patient to [facility] for [facility] care. - Clear liquid diet. - Check Gastrin level now - Continue present medications. - Await pathology results. Anastacio Edgar, DO 04/01/2022 11:23:18 AM This report has been signed electronically. Note Initiated On: 04/01/2022 10:50 AM Number of Addenda: 0 I attest to the content of the Intraoperative Record and orders documented therein, exceptions below {[id number]}
[2022-04-01] MEDS ORDERED: METHOCARBAMOL 500 MG TABLET PO PRN (12:45)
[2022-04-01] MEDS: SUMAtriptan succinate 100 MG TAB PO PRN (13:28)
[2022-04-01] MEDS: HYDROcodone/ACETAMINOPHEN 10/325 TAB PO PRN ×2 (14:26→20:13)
[2022-04-01] MEDS: GABAPENTIN 100 MG CAP PO SCH ×2 (14:26→20:09)
[2022-04-01] MEDS: hydrOXYzine HCl 25 MG TAB PO PRN ×2 (14:27→20:11)
--- NOTE | 2022-04-01 15:40 | Anesthesiology Progress Note ---
Date of Service April 01, 2022 Anesthesia Post Procedure Vital Signs Vital Signs: Temp Pulse Pulse Pulse Resp BP BP 04/01/22 15:36 36.7 C 100 H 16 04/01/22 14:39 127 H 04/01/22 12:20 117 H 145/87 H 04/01/22 12:06 36.5 C 113 H 141/92 H 04/01/22 11:43 103 H 20 153/98 H 04/01/22 11:28 100 H 20 143/86 H 04/01/22 11:13 105 H 24 151/96 H 04/01/22 10:34 37.4 C 105 H 16 04/01/22 07:57 36.5 C 105 H 17 04/01/22 06:52 104 H 04/01/22 03:21 36.4 C L 102 H 18 04/01/22 02:43 110 H 03/31/22 23:44 36.5 C 107 H 18 127/82 03/31/22 19:19 36.6 C 111 H 18 128/81 03/31/22 19:04 103 H 16 03/31/22 18:45 36.4 C L 122 H 20 124/87 03/31/22 18:30 36.4 C L 122 H 20 124/87 03/31/22 17:47 104 H 03/31/22 17:45 104 H 16 03/31/22 17:44 37.2 C 104 H 16 142/90 H 03/31/22 16:45 103 H 18 141/86 H 03/31/22 16:37 107 H 19 118/76 03/31/22 15:45 37.1 C 114 H 20 126/68 BP Pulse Ox 04/01/22 15:36 134/86 98 04/01/22 14:39 04/01/22 12:20 100 04/01/22 12:06 100 04/01/22 11:43 100 04/01/22 11:28 98 04/01/22 11:13 100 04/01/22 10:34 147/94 H 99 04/01/22 07:57 136/87 99 04/01/22 06:52 04/01/22 03:21 130/85 98 04/01/22 02:43 03/31/22 23:44 97 03/31/22 19:19 97 03/31/22 19:04 100 03/31/22 18:45 100 03/31/22 18:30 100 03/31/22 17:47 100 03/31/22 17:45 100 03/31/22 17:44 100 03/31/22 16:45 100 03/31/22 16:37 100 03/31/22 15:45 100 Pain Intensity Back: Pain Intensity: 4 Transfer of Care Handoff Completed per policy Notes Mental Status: alert / awake / arousable and participated in evaluation Patient Amnestic to Procedure: Yes Nausea / Vomiting: adequately controlled Pain: adequately controlled Airway Patency, RR, SpO2: stable & adequate BP & HR: stable & adequate Hydration State: stable & adequate Anesthetic Complications: no major complications apparent and Pt Satisfied with anesthetic care
[2022-04-01] MEDS: buPROPion SR 100 MG TABCR PO SCH (20:09)
[2022-04-01] MEDS ORDERED: MIRTAZAPINE TAB 15 MG TAB PO SCH (21:00)
[2022-04-01] MEDS ORDERED: LIDOCAINE 5% 1 PATCH TD SCH (21:00)
[2022-04-02] MEDS: SUMAtriptan succinate 100 MG TAB PO PRN ×2 (00:20→14:11)
[2022-04-02] MEDS: MoRPHine SULFATE 2 MG/ML CARP IV PRN (00:26)
[2022-04-02] MEDS ORDERED: ONDANSETRON INJ 2 MG/ML 2 ML VIAL IV PRN (00:35)
[2022-04-02] MEDS ORDERED: PROCHLORPERAZINE 10 MG in SYRINGE 8 ML IV ONE (02:15)
[2022-04-02] MEDS ORDERED: SODIUM CHLORIDE 0.9% 1000ML 1,000 ML IV SCH (02:35)
[2022-04-02] MEDS ORDERED: KETOROLAC 30 MG/ML VIAL ONE (02:37)
[2022-04-02] MEDS ORDERED: KETOROLAC 30 MG/ML VIAL IV ONE (02:38)
[2022-04-02] MEDS ORDERED: diphenhydrAMINE 50 MG/ML VIAL ONE (02:38)
[2022-04-02] MEDS ORDERED: diphenhydrAMINE 50 MG/ML VIAL IV ONE (02:38)
[2022-04-02] MEDS: PANTOprazole 40 MG in DEXTROSE 5% 100 ML IV SCH ×2 (03:25→08:16)
[2022-04-02] MEDS ORDERED: LEVOTHYROXINE SODIUM 50 MCG TABLET PO SCH (06:30)
[2022-04-02 06:54] LABS: Basophils # (auto) 0.01 K/uL (0-0.2); Basophils % (auto) 0.2 %; Eosinophils # (auto) 0.03 K/uL (0-0.5); Eosinophils % (auto) 0.6 %; Hematocrit (blood only) 28.8 % (37-47); Hemoglobin 9.4 g/dL (12.0-16.0); Lymphocytes % (auto) 31.3 %; Mean Corpuscular Hemoglobin 30.6 pg (25-34); Mean Corpuscular Hgb Conc 32.6 g/dL (32-36); Mean Corpuscular Volume 93.8 fL (80-100); Mean Platelet Volume 9.2 fL (7.4-10.4); Monocytes # (auto) 0.37 K/uL (0.11-0.59); Monocytes % (auto) 7.7 %; Neutrophils # (auto) 2.88 K/uL (1.4-6.5); Neutrophils % (auto) 60.2 %; Platelet Count 260 K/uL (130-400); RDW Coefficient of Variation 15.6 % (11.5-14.5); RDW Standard Deviation 53.6 fL (36.4-46.3); Red Blood Count 3.07 M/uL (4.2-5.4); White Blood Count 4.79 K/uL (4.8-10.8)
[2022-04-02 07:10] LABS: BUN Creatinine Ratio 10.4 (10-20); Calcium 7.2 mg/dl (8.5-10.1); Est GFR (African American) 109.2 ml/min; Est GFR (Non-African American) 94.2 ml/min; Magnesium 1.7 mg/dl (1.7-2.4); Potassium 3.8 mmol/L (3.5-5.1)
[2022-04-02] MEDS ORDERED: STAT IV STA (08:16)
[2022-04-02] MEDS: GABAPENTIN 100 MG CAP PO SCH ×2 (08:16→14:11)
[2022-04-02] MEDS: hydrOXYzine HCl 25 MG TAB PO PRN (08:17)
[2022-04-02] MEDS: buPROPion SR 100 MG TABCR PO SCH (08:18)
[2022-04-02] MEDS: HYDROcodone/ACETAMINOPHEN 10/325 TAB PO PRN (08:24)
[2022-04-02] MEDS ORDERED: MAGNESIUM SULFATE / D5W 1 GM/100 ML BAG IV ONE (08:30)
[2022-04-02] MEDS ORDERED: CALCIUM GLUCONATE 10% 1,000 MG in DEXTROSE 5% 50 ML IV ONE (08:45)
[2022-04-02] MEDS ORDERED: METOPROLOL SUCC 50MG EXT REL TAB PO SCH (09:00)
[2022-04-02] MEDS ORDERED: amLODIPine BESYLATE 5 MG TAB PO SCH (09:00)
--- NOTE | 2022-04-02 09:14 | Gastroenterology Progress Note ---
Date of Service April 02, 2022 Assessment & Plan (1) Esophagitis: (2) Gastric ulcer: Plan: -Continue Protonix 40 mg BID on discharge -Add Carafate 1 gm four times daily before meals and at bedtime. Please Rx on discharge. Discussed with patient how to crush tablets to make liquid suspension if insurance does not cover liquid med. -Check serum gastrin level as patient developed ulcers and esophagitis on max dose PPI therapy -Follow-up as an outpatient to discuss gastrin levels, biopsy, tight Krystyna wrap and further plans. Admission and Anticipated Discharge Date Admission Date: March 31, 2022 Subjective Patient is a 61 yo female admitted with anemia. She underwent an EGD on 04/01/22 that indicated gastric ulcers & esophagitis. Her Krystyna wrap appeared tight. She takes Protonix 40 mg BID at home. She denies further melena. She denies abdominal pain. H/H 9.4/28.8. She is eager to return home. Review of Systems Gastrointestinal: no abdominal pain, no hematemesis and no melena Physical Exam Constitutional: well developed Respiratory: normal respiratory effort Musculoskeletal: Head/Neck/Chest: normocephalic Psychiatric: Orientation: alert and oriented x 3 Results & Data Results & Data ([facility]) Vital Signs (Past 12 Hours) Vital Signs Temp Pulse Pulse Resp BP BP Pulse Ox 04/02/22 07:23 36.5 C 99 H 18 120/79 98 04/02/22 06:09 96 H 04/02/22 03:19 36.8 C 108 H 20 144/85 H 100 04/01/22 23:57 36.4 C L 106 H 16 123/87 96 04/01/22 22:53 109 H PG Care Time/CCT Total # of Minutes Spent Total Time Spent with Patient: Total time spent is greater than 50% in coordination of care (as documented) at patient's floor/unit and/or counseling patient: Coding Level of Care Code 65309 Subseq Hosp Care Lvl 3 Diagnoses Esophagitis K20.90 Gastric ulcer K25.9
--- NOTE | 2022-04-02 13:53 | Discharge Summary ---
Date of Service April 02, 2022 Admission HPI Per Admitting Provider 61 YOF with medical history of: GERD, Scoliosis, Scleroderma, Laparoscopic fundoplication, Stomach ulcers (on PPI and Carafate). Patient comes to the EMD today referred from her PCP secondary to hypoxia and hypotension. The patient endorses that over the past 5 days she has been having liquid dark black stools. She endorses 5-6 of these yesterday. She then became weak and fatigued that even going to the bathroom she would become exhausted. She felt dizzy and light headed that was associated with warm flushing yesterday and today when she would stand up. This was precluded by 1 week increase in stomach burning as well as burning into her throat that occurred after eating and taking her medications. She has decreased her oral intake secondary to the pain she was having. She does not smoke and does not drink alcohol. She denies any use of NSAIDS. She does endorse very heavy use of diet coke. In the EMD the paitient arrived tachycardic, hypotensive, and hypoxic. She was briefly placed on BiPAP for her RR. She had routine labs performed which revealed a HGB of 8 (no recent for comparison), and BUN of 40, lactate of 2.6. Her ionized calcium is low and her Mag is low as well at 1.4. She is already receiving 1 unit of PRBC- will give 1GM of CA gluconate following this unit of blood. She has already received her Protonix bolus and drip so will continue Protonix infusion. Will keep NPO. Ob tain 2 large bore IV. Patient endorses that her fundoplication was performed about 7 years ago and that she follows with Dr. Galaviz (sp?) in [facility]. She does report history of ulcers following her fundoplication and was following up with them every 3 months. Her last EGD she thinks was approx 2 years ago. She reports that she is on Carafate and PPI. [facility] has been consulted by [facility] physician already. COVID test on admission is: NEGATIVE Principal Diagnosis Acute blood loss anemia, GI bleed secondary to gastric ulcers Discharge Exam Constitutional WD/WN, vitals as above Eyes + anicteric sclerae ENMT external ear and nose normal, oropharynx normal Neck trachea midline, no thyromegaly Respiratory normal respiratory effort, lungs clear to auscultation Cardiovascular RRR, no murmur, no edema Chest (Breasts) Chest: normal inspection of chest Gastrointestinal (Abdomen) normal bowel sounds, soft, nontender, no hepatosplenomegaly Musculoskeletal Spine: + thoracic spine abnormal to inspection (scoliosis with rotation present) Extremities: extremities normal to inspection; no cyanosis and no clubbing Skin no rashes, warm and dry Neurologic moves all extremities and awake; no focal motor deficits Psychiatric A+Ox3, euthymic affect Lymphatic no lymphedema Discharge Data Allergies Allergy/AdvReac Type Severity Reaction Status Date / Time Bactrim Allergy Unknown LIPS Verified 12/29/17 14:31 SWELLING sulfamethoxazole [Bactrim] Allergy Unknown LIPS Verified 04/01/22 10:31 SWELLING trimethoprim [Bactrim] Allergy Unknown LIPS Verified 04/01/22 10:31 SWELLING methotrexate AdvReac Unknown GI UPSET Verified 04/01/22 10:31 Consultations 03/31/22 15:03 ED Decision to Admit Stat 03/31/22 18:29 Consult Gastroenterology Routine Procedures Performed Operation Date: 04/01/22 17:50 Actual Procedures p EGD Biopsy Dilatation - Anastacio Edgar, DO Ordered Studies 03/31/22 13:18 CT angio chest PE protocol Stat Hospital Course (1) UGI bleed: GI bleed-presented with melena, symptomatic anemia, increase in BUN - Hx of fundoplication with previous ulcerations on current dual therapy of BID PPI and Carafate although not taking Carafate consistently - she is not on any anti-platelet medications- Platelet count normal - HGB 8.3--- (13.1 in 2020) on admission and then went up to 9.1 after 1 unit PRBCs overnight. Hemoglobin stable on the day of discharge at 9.4 and no further bleeding -Status post EGD on 04/01 which showed 6 gastric ulcers with no recent stigmata of bleeding-biopsies taken and pending at the time of discharge -Received 48 hours of Protonix infusion and will convert back to home Protonix 40 Mg p.o. twice daily, and she will take Carafate 1 g p.o. 4 times daily consistently -will add on misoprostol 100 mcg p.o. twice daily given ongoing recurrent ulcers in the setting of max PPI therapy-I discussed with GI. They want to watch for diarrhea -Gastrin level sent and pending at the time of discharge; stomach biopsies and H. pylori pending pathology at the time of discharge -Follow-up with GI within 2 weeks (2) Acute blood loss anemia: Acute blood loss anemia as above (3) Elevated troponin: trop 19 on admission, ECG ST, no ischemic changes, no chest pain but with SOB now resolved with transfusion -trend trop--> went down to 13 no events on tele does have a h/o Takotsubo's which is now resolved with normal EF as per pt (4) Migraines: 1 a month or less reported has triptan available -use prn Developed a severe migraine in the setting of being n.p.o.-was given Imitrex x2, Compazine, Benadryl, and IV fluids with resolution (5) GERD (gastroesophageal reflux disease): As above with fundoplication which was dilated during EGD Continue PPI (6) Hypomagnesemia: Mag 1.4 secondary to stool loss and no oral food intake on admission Replaced and normalized (7) Scoliosis: Chronic with chronic back pain - continue Tylenol for pain - Lidoderm patch added - Is on home oral hydrocodone- PRN narcotic IV while NPO was given (8) Scleroderma: No acute needs noted at this time no known Pulm HTN or Pulm fibrosis she knows of (9) Hypothyroidism: Continue synthroid TSH checked and normal here at 1.09 (10) HTN (hypertension): Blood pressures were low initially but improved-she was able to tolerate amlodipine and metoprolol, but lisinopril was held Continue amlodipine, metoprolol, and home HCTZ, but continue to hold lisinopril on discharge until follow-up with PCP (11) Anxiety: -Continue home hydroxyzine, bupropion (12) Depression: Continue mirtazapine, bupropion Dispo-stable for discharged home Total Time Total Time Spent Total Time Spent (In Minutes): 40 minutes Total Time Includes: Examination of the Patient, Discharge Planning, Medication Reconciliation and Communication With Other Providers (Dr. Edgar) Discharge Plan Discharge Items Patient Disposition: Home - Self-Care Reason For Visit: GI BLEED Discharge Diagnosis: Acute blood loss anemia, GI Bleed from gastric ulcers Condition on Discharge: Good Activity: As commented below Lifting: Gradually increase as tolerated Bathing: No limitations Exercise/Sports: Gradually increase as tolerated Non-emergency contact: Primary Care Provider and Teacher Advisor Call non-emergency contact if: you have any medication questions and your symptoms worsen Follow-up/Referrals: Anastacio Edgar DO [Physician] - (Follow up within 2 weeks) Stacia Olmedo CRNP [Primary Care Provider] - (Follow up within 1-2 weeks) Diet: Low Fiber Diet Comment: Low fiber diet x 1-2 weeks, then back to regular Addtl Attending Provider Instructions: You were admitted with a GI bleed and found to have multiple ulcers in your stomach. The bleeding stopped and you were transfused 1 unit of blood. Please continue taking Protonix 40mg twice a day and ensure that you are taking Carafate 1 gram four times a day. There is also another new medication you can try called misoprostol. I will start you at a low dose of 100 mcg twice a day. This medication can cause diarrhea. If this causes too much diarrhea then you can stop it. This medication helps to prevent stomach ulcers also. The biopsies of your stomach and a blood test called "gastrin" were pending at the time of discharge. Please follow up with the GI doctor for these results within 2 weeks. If you have recurrence of black tarry stools or bloody stools, or vomit blood, please return to the ER right away. Your lisinopril was stopped temporarily for now as your blood pressures were a bit on the low side. This medication can be restarted in the future as your blood pressures rise up. Please follow up with your PCP. Pending Studies at Discharge: Yes (Biopsy pathology, Gastrin level) Stand-Alone Forms: [facility], Smoking Cessation Medications and DC Order Prescriptions: New sucralfate [Carafate] 100 mg/mL suspension 1 g PO QID 30 Days Qty: 1200 RF: 0 misoprostol 100 mcg tablet 100 mcg PO BID Qty: 60 RF: 0 Continued multivitamin Tablet 1 tab PO DAILY RF: 0 methocarbamol 500 mg tablet 500 mg PO Q8 PRN (Reason: .FACIAL PAIN /MUSCLE SPASMS) RF: 0 sumatriptan succinate 100 mg tablet 100 mg PO DIRECTED PRN (Reason: Migraine Headache) RF: 0 metoprolol succinate 100 mg tablet extended release 24 hr 100 mg PO DAILY RF: 0 hydrocodone-acetaminophen 10-325 mg tablet 1 tab PO .Q4-6HR PRN (Reason: Pain) RF: 0 estradiol 1 mg tablet 1 mg PO DAILY RF: 0 amlodipine 10 mg tablet 10 mg PO DAILY RF: 0 levothyroxine 50 mcg tablet 50 mcg PO DAILY RF: 0 mirtazapine 30 mg tablet 30 mg PO HS RF: 0 hydroxyzine HCl 25 mg tablet 25 mg PO TID PRN (Reason: Anxiety) RF: 0 zaleplon 10 mg capsule 10 mg PO HS PRN (Reason: Sleep) RF: 0 gabapentin 100 mg capsule 100 mg PO TID RF: 0 bupropion HCl 200 mg tablet sustained-release 12 hr 200 mg PO BID RF: 0 sumatriptan succinate 4 mg/0.5 mL pen injector 4 mg SUBCUT DIRECTED PRN (Reason: .ONSET OF MIGRAINE) RF: 0 calcium carbonate-vitamin D3 [Calcium 600 + D(3)] 600 mg-10 mcg (400 unit) Tablet 1 tab PO DAILY RF: 0 hydrochlorothiazide 12.5 mg tablet 12.5 mg PO DAILY RF: 0 pantoprazole 40 mg tablet,delayed release (DR/EC) 40 mg PO BID Qty: 60 RF: 0 Discontinued sucralfate [Carafate] 1 gram Tablet 1 g PO ACHS RF: 0 lisinopril 40 mg tablet 40 mg PO DAILY RF: 0 Discharge Orders: Discharge Order (Routine); Ordered 04/02/22 Ordered By: Mayela Qureshi Admission Data Admit Date/Time: 03/31/22 15:39 Attending Provider: Mayela Qureshi Admit Provider: Jeb Pineda Primary Care Provider: Stacia Olmedo Other Providers: Jeb Pineda ; Anastacio Edgar Other Interventions: Discharge Summary Assessment (RN) Last Done: 04/01/22 11:43 Coding Level of Care Code D/C DAY MANAGEMENT >30 MINS Diagnoses UGI bleed K92.2 Acute blood loss anemia D62 Elevated troponin R77.8 Migraines G43.909 GERD (gastroesophageal reflux disease) K21.9 Hypomagnesemia E83.42 Scoliosis M41.9 Scleroderma M34.9 Hypothyroidism E03.9 HTN (hypertension) I10 Anxiety F41.9 Depression F32.A
== END 2022-04-02 15:15 | disposition home or self-care (01) | DRG 378 ==
LOC: ED 13:18 → SUATTDRO 15:39 → 2S 15:39